=== PATIENT | female | born 1995 | race Caucasian/White ===

== ENCOUNTER 2018-12-13 12:46 | Emergency (ER) | payer OTHER, SELFPAY ==
--- NOTE | 2018-12-13 13:15 | EDPHYS ---
Physician Documentation [facility] Name: Kamille Schofield Age: 23 yrs Sex: Female : 1995 Arrival Date: 12/13/2018 Time: 12:49 Bed 12 Private MD: ED Physician Cesar Velazco HPI: 12/13 13:07 This 23 yrs old Female presents to ER via Ambulatory with complaints of Ear jmm Pain. 13:07 The patient presents with pain. Onset: The symptoms/episode began/occurred gradually, 2 jmm day(s) ago. Modifying factors: The symptoms are alleviated by nothing, the symptoms are aggravated by nothing. Associated signs and symptoms: Pertinent positives: cough. This is a 23 year old female with no chronic medical conditions that presents to the ED with complaints of right ear pain and decreased ability to hear. Patient states having a cough for approximately 2 days. Children have similar symptoms. . Historical: - Allergies: 12:55 No Known Allergies; sv - Ebola Screening: : No symptoms or risks identified at this time. ROS: 13:07 Constitutional: Negative for fever, chills, and weight loss. jmm 13:07 Abdomen/GI: Negative for abdominal pain, nausea, vomiting, diarrhea, and constipation. 13:07 ENT: Positive for rhinorrhea, sinus congestion. 13:07 ENT: Positive for ear pain. 13:07 Respiratory: Positive for cough. 13:07 All other systems are negative. Exam: 13:07 Constitutional: This is a well developed, well nourished patient who is awake, alert, jmm and in no acute distress. Head/Face: atraumatic. Eyes: EOMI, no conjunctival erythema appreciated 13:07 Neck: Trachea midline, Supple Chest/axilla: Normal chest wall appearance and motion. 13:07 Respiratory: Normal respirations, no respiratory distress appreciated Abdomen/GI: Non distended, soft Back: Normal ROM Skin: General appearance color normal MS/ Extremity: Moves all extremities, no obvious deformities appreciated, no edema noted to the lower extremities Neuro: Awake and alert, normal gait Psych: Behavior is normal, Mood is normal, Patient is cooperative and pleasant 13:07 ENT: TM's: bulging, on the right, erythema, that is moderate, bilaterally. 13:07 Cardiovascular: Rate: normal, Rhythm: regular. 13:07 Respiratory: the patient does not display signs of respiratory distress, Respirations: normal, Breath sounds: are clear throughout. Vital Signs: 12:55 BP 128 / 88; Pulse 82; Resp 18; Temp 98.8; Pulse Ox 98% ; Height 5 ft. 7 in. (170.18 sv cm); MDM: 13:07 Patient medically screened. moises 13:14 Data reviewed: vital signs, nurses notes. Counseling: I had a detailed discussion with moises the patient and/or guardian regarding: the historical points, exam findings, and any diagnostic results supporting the discharge/admit diagnosis, the need for outpatient follow up, to return to the emergency department if symptoms worsen or persist or if there are any questions or concerns that arise at home. ED course: Patient is alert and non toxic in appearance in the ED. Patient given strict return precautions. Patient understood and agrees with the plan of care. . Administered Medications: No medications were administered Disposition: 12/14 07:26 Co-signature as Attending Physician, Cesar Velazco MD I agree with the assessment and kdr plan of care. Disposition: 12/13/18 13:15 Discharged to Home. Impression: Acute serous otitis media. - Condition is Stable. - Discharge Instructions: Otitis Media, Adult. - Prescriptions for Amoxicillin 875 mg Oral Tablet - take 1 tablet by ORAL route every 12 hours for 10 days; 20 tablet. - Medication Reconciliation Form, Thank You Letter, Antibiotic Education, Prescription Opioid Use form. - Follow up: Private Physician; When: 2 - 3 days; Reason: Recheck today's complaints, Continuance of care, Re-evaluation by your physician. Signatures: Kalee Ahmadi RN RN Cesar Velazco MD MD kdr Mickail, Joel, PA PA jm Joan Teixeira, STEPHANY RN aa5 Corrections: (The following items were deleted from the chart) 12/13 13:18 13:15 12/13/2018 13:15 Discharged to Home. Impression: Acute serous otitis media. aa5 Condition is Stable. Forms are Medication Reconciliation Form, Thank You Letter, Antibiotic Education, Prescription Opioid Use. Follow up: Private Physician; When: 2 - 3 days; Reason: Recheck today's complaints, Continuance of care, Re-evaluation by your physician. [facility]
--- NOTE | 2018-12-13 13:15 | ER ---
Nurse's Notes [facility] Name: Kamille Schofield Age: 23 yrs Sex: Female : 1995 Arrival Date: 12/13/2018 Time: 12:49 Bed 12 Private MD: Diagnosis: Acute serous otitis media Presentation: 12/13 12:55 Presenting complaint: Patient states: right ear pain x 2 days. Transition of care: sv patient was not received from another setting of care. Onset of symptoms was December 2018. Risk Assessment: Do you want to hurt yourself or someone else? Patient reports no desire to harm self or others. Initial Sepsis Screen: Does the patient meet any 2 criteria? No. Patient's initial sepsis screen is negative. Does the patient have a suspected source of infection? No. Patient's initial sepsis screen is negative. Care prior to arrival: Medication(s) given: Amoxicillin. 12:55 Method Of Arrival: Ambulatory sv 12:55 Acuity: SREE 5 sv Historical: - Allergies: 12:55 No Known Allergies; sv - Ebola Screening: : No symptoms or risks identified at this time. Screenin:00 Abuse screen: Denies threats or abuse. Nutritional screening: No deficits noted. aa5 Tuberculosis screening: No symptoms or risk factors identified. Fall Risk None identified. Assessment: 13:00 General: Appears comfortable, Behavior is calm, cooperative. Pain: Complains of pain in aa5 right ear Pain does not radiate. Pain currently is 8 out of 10 on a pain scale. Is continuous. Neuro: Level of Consciousness is awake, alert, obeys commands, Oriented to person, place, time, situation. Cardiovascular: Patient's skin is warm and dry. Respiratory: Airway is patent Respiratory effort is even, unlabored, Respiratory pattern is regular, symmetrical. GI: No signs and/or symptoms were reported involving the gastrointestinal system. : No signs and/or symptoms were reported regarding the genitourinary system. EENT: Reports pain in right ear. Derm: Skin is pink, warm \T\ dry. Musculoskeletal: Range of motion: intact in all extremities. 13:18 Reassessment: Patient is alert, oriented x 3, equal unlabored respirations, skin aa5 warm/dry/pink. Vital Signs: 12:55 BP 128 / 88; Pulse 82; Resp 18; Temp 98.8; Pulse Ox 98% ; Height 5 ft. 7 in. (170.18 sv cm); ED Course: 12:49 Patient arrived in ED. as 12:55 Triage completed. sv 12:56 Fer[facility] Stoner [facility] 12:56 Arm band placed on. sv 12:57 Cesar Velazco MD is Attending Physician. [facility] 13:00 Patient has correct armband on for positive identification. Call light in reach. aa5 13:00 Patient did not have IV access during this emergency room visit. aa5 13:00 No provider procedures requiring assistance completed. aa5 13:08 Joan Teixeira, RN is Primary Nurse. aa5 Administered Medications: No medications were administered Outcome: 13:15 Discharge ordered by MD. [facility] 13:15 Discharged to home ambulatory. aa5 13:15 Condition: good 13:15 Discharge instructions given to patient, Instructed on discharge instructions, follow up and referral plans. medication usage, Demonstrated understanding of instructions, follow-up care, medications, Prescriptions given X 1. 13:18 Patient left the ED. aa5 Signatures: Kalee Ahmadi, RN RN Fercho Stoner PA PA jmm Martinez, Amelia as Joan Teixeira, RN RN aa5 Corrections: (The following items were deleted from the chart) 12:56 12:55 BP 128 / 8; Pulse 82bpm; Resp 18bpm; Pulse Ox 98%; Temp 98.8F; Height 5 ft. 7 sv in.; sv
[2018-12-13 16:36] VITALS: BP 128/88; TEMP 98.8; O2SAT 98
--- OUTSIDE RECORDS SUMMARY | 2018-12-17 03:49 | XMS REPORT ---
:1995 [facility] Address [address] [place] [address] Dr. Hua [address] [place] [id number] Care Team Providers Name Role Phone Unavailable Unavailable Unavailable Problems This patient has no known problems. Allergies, Adverse Reactions, Alerts This patient has no known allergies or adverse reactions. Medications This patient has no known medications.
--- OUTSIDE RECORDS SUMMARY | 2018-12-17 03:49 | XMS REPORT | Summary of Care ---
:1995 Author Organization [facility] Address [address] [place] [address] Care Team Providers Name Role Phone Doctor Unassigned, [employer] Insurance Hmo Unavailable Kennedy RoweP Primary Care Provider Reason for Visit Reason Comments Other has question about problem list Encounter Details Date Type Department Care Team Description 08/30/2018 Telephone [facility]- Sierra Lenz Other (has question [facility], [facility] about problem list) [address] [facility] [address] [facility] [id number] [place] [address] [phone] Allergies No Known Allergiesdocumented as of this encounter (statuses as of 08/30/2018) Medications Medication Sig Dispensed Refills Start Date End Date Status vitamin Take 1 tablet by 100 tablet 3 05/01/2017 Active w/FA tablet mouth daily. hydrocortisone 25 mg Insert 1 30 Suppository 1 04/26/2018 Active suppositoryIndicatio Suppository into ns: Hemorrhoids, rectum 2 (two) unspecified times daily. hemorrhoid type documented as of this encounter (statuses as of 08/30/2018) Active Problems Patient Care Coordination Note IOL 04/28/17 at 39w3d Problem Noted Date Pelvic pressure in 08/30/2018 GBS (group B Streptococcus carrier), +RV culture, currently 2018 Overview: Assess in Obesity affecting in third trimester 01/16/2018 Multiparity 01/16/2018 Short interval between pregnancies affecting in first trimester, 12/2017 antepartum Family history of fraternal twins 01/16/2018 Influenza vaccination declined 01/16/2018 High risk , antepartum 08/31/2016 Estimated Date of Delivery Comments Yes 09/15/2018 Based on last menstrual period of 12/09/2017 documented as of this encounter (statuses as of 08/30/2018) Resolved Problems Problem Noted Date Resolved Date Routine follow-up 05/22/2017 01/16/2018 anemia 04/30/2017 05/22/2017 Single liveborn 04/30/2017 05/22/2017 (spontaneous vaginal delivery) 04/30/2017 05/22/2017 Threatened labor at term 04/28/2017 05/22/2017 Morbid obesity with body mass index of 40.0-49.9 04/28/2017 01/16/2018 39 weeks gestation of 04/28/2017 05/22/2017 Anemia of mother in , antepartum 04/05/2017 05/22/2017 Primigravida, antepartum 01/24/2017 05/22/2017 Obesity in 08/31/2016 05/22/2017 Pelvic cramping in antepartum period 08/31/2016 03/28/2017 documented as of this encounter (statuses as of 08/30/2018) Immunizations Name Administration Dates Next Due TDAP (ADACEL) VACCINE 07/05/2018 Tdap 02/23/2017 documented as of this encounter Social History Tobacco Use Types Packs/Day Years Used Date Never Smoker Smokeless Tobacco: Never Used Alcohol Use Drinks/Week oz/Week Comments No Estimated Date of Delivery Comments Yes 09/15/2018 Based on last menstrual period of 12/09/2017 Sex Assigned at Date Recorded Not on file Job Start Date Occupation Industry Not on file Not on file Not on file Travel History Travel Start Travel End No recent travel history available. documented as of this encounter Last Filed Vital Signs Not on filedocumented in this encounter Plan of Treatment Date Type Specialty Care Team Description 09/06/2018 Routine Visit OB Satellites Kennedy Rowe, [employer] [address] [place] [address] [phone] Health Maintenance Due Date Last Done Comments HPV VACCINES (1 - Female 2008 3-dose series) INFLUENZA VACCINE 10/07/2018 PAP SMEAR 09/01/2019 08/31/2016 DTaP,Tdap,and Td Vaccines (3 07/05/2028 07/05/2018, - Td) 02/23/2017 PNEUMOCOCCAL 0-64 YEARS Aged Out No longer eligible based COMBINED SERIES on patient's age to complete this topic documented as of this encounter Results Not on filedocumented in this encounter Insurance Payer Benefit Plan / Subscriber ID Effective Dates Phone Address Type Group [facility] xxxxxxxxx 2018-Present Medicaid HEALTH PLAN - HEALTH MANAGED MEDICAID documented as of this encounter Advance Directives Name Relationship Healthcare Agent Relationship Communication Dalia Case Grandparent Primary healthcare agent [phone]
--- OUTSIDE RECORDS SUMMARY | 2018-12-17 03:49 | XMS REPORT | Summary of Care ---
:1995 Author Organization [facility] Address [address] [place] [id number] Care Team Providers Name Role Phone Doctor Unassigned, [place] Insurance Hmo Unavailable Kennedy Rowe Primary Care Provider Reason for Visit Reason Comments Care Encounter Details Date Type Department Care Team Description 08/30/2018 Routine [facility] [place], High-risk in third trimester (Primary Dx); Visit [place] [facility]; [address] [place] [address] Short interval between pregnancies affecting in first trimester, antepartum; [facility] Obesity affecting in third trimester; [id number] [address] Pelvic pressure in [phone] [place] [address] Allergies No Known Allergiesdocumented as of this [...] of this encounter Last Filed Vital Signs Vital Sign Reading Time Taken Comments Blood Pressure 138/87 08/30/2018 1:30 PM CDT Pulse 112 08/30/2018 1:30 PM CDT Temperature 37.4 C (99.4 F) 08/30/2018 1:30 PM CDT Respiratory Rate 16 08/30/2018 1:30 PM CDT Oxygen Saturation - - Inhaled Oxygen Concentration - - Weight 143.1 kg (315 lb 6 oz) 08/30/2018 1:30 PM CDT Height 170.2 cm (5' 7") 08/30/2018 1:30 PM CDT Body Mass Index 49.39 08/30/2018 1:30 PM CDT documented in this encounter Progress Notes Sierra Lenz, CNP - 08/30/2018 1:15 PM CDT Chief complaint: Chief Complaint Patient presents with Care HPI CC: Follow Up Visit Kamille Schofield is a 23 year old, , /White female. Patient's last menstrual period was 12/09/2017. She is 37w5d with an intrauterine . Her estimated date of delivery is 09/15/2018,by Last Menstrual Period. She complains today of: Cramps. She reports midpoint of pelvis cramps which started 1 day(s) ago, occurring since last nightshe rates cramp as 4/10. Associated symptom(s) include none. Symptoms are worse with movements. Symptoms are relieved with rest.. She reports +FM and denies contractions, LOF and bleeding today. Histories OB History Para Term AB Living 2 1 1 1 SAB TAB Ectopic Multiple Live Births 0 1 # Outcome Date GA Lbr Ancelmo/2nd Weight Sex Delivery Anes PTL Lv 2 Current 1 Term 04/29/17 39w4d 7 lb 13.6 oz (3.56 kg) F VAGINAL EPI CHANTE Past Medical History: Diagnosis Date Anemia of mother in , antepartum 04/05/2017 Family History Problem Relation Age of Onset Other - see comments Maternal Grandmother blood clot in leg Arthritis NoFHx Asthma NoFHx defects NoFHx Breast Cancer NoFHx Colon Cancer NoFHx Ovarian Cancer NoFHx Uterine Cancer NoFHx Cancer NoFHx Depression NoFHx Genetic NoFHx Diabetes NoFHx Heart NoFHx High cholesterol NoFHx Hypertension NoFHx Mental retardation NoFHx Neurological NoFHx Osteoporosis NoFHx Psychiatry NoFHx Family Status Relation Name Status MGMo (Not Specified) NoFHx (Not Specified) Past Surgical History: Procedure Laterality Date APPENDECTOMY at age 10 Social History Socioeconomic History Marital status: Single Spouse name: Not on file Number of children: Not on file Years of education: Not on file Highest education level: Not on file Occupational History Not on file Social Needs Financial resource strain: Not on file Food insecurity: Worry: Not on file Inability: Not on file Transportation needs: Medical: Not on file Non-medical: Not on file Tobacco Use Smoking status: Never Smoker Smokeless tobacco: Never Used Substance and Sexual Activity Alcohol use: No Drug use: No Sexual activity: Yes Partners: Male control/protection: None Comment: last sexual intercourse 12/21/2017 Lifestyle Physical activity: Days per week: Not on file Minutes per session: Not on file Stress: Not on file Relationships Social connections: Talks on phone: Not on file Gets together: Not on file Attends shinto service: Not on file Active member of club or organization: Not on file Attends meetings of clubs or organizations: Not on file Relationship status: Not on file Intimate partner violence: Fear of current or ex partner: Not on file Emotionally abused: Not on file Physically abused: Not on file Forced sexual activity: Not on file Other Topics Concern Not on file Social History Narrative Pt denies current or past physical, sexual or emotional abuse. Has a cat in the house, litter box precautions discussed. Social History Substance and Sexual Activity Sexual Activity Yes Partners: Male control/protection: None Comment: last sexual intercourse 12/21/2017 Labs No new labs and Routine Visit on 08/23/2018 Component Date Value C. trachomatis Nucleic A* 08/23/2018 Negative N. gonorrhoeae Nucleic A* 08/23/2018 Negative Group B Streptococcus by* 08/23/2018 Positive* WBC 08/23/2018 9.22 RBC 08/23/2018 4.06 HGB 08/23/2018 10.2* HCT 08/23/2018 33.1* MCV 08/23/2018 81.5 MCH 08/23/2018 25.1* MCHC 08/23/2018 30.8* RDW-SD 08/23/2018 40.6 RDW-CV 08/23/2018 13.8 PLT 08/23/2018 206 MPV 08/23/2018 11.1 NRBC/100 WBC 08/23/2018 0.0 NRBC x10^3 08/23/2018 <0.01 GRAN MAT (NEUT) % 08/23/2018 78.0 IMM GRAN % 08/23/2018 0.20 LYMPH % 08/23/2018 17.2 MONO % 08/23/2018 3.8 EOS % 08/23/2018 0.5 BASO % 08/23/2018 0.3 GRAN MAT x10^3(ANC) 08/23/2018 7.18* IMM GRAN x10^3 08/23/2018 <0.03 LYMPH x10^3 08/23/2018 1.59 MONO x10^3 08/23/2018 0.35 EOS x10^3 08/23/2018 0.05 BASO x10^3 08/23/2018 0.03 Routine Visit on 08/16/2018 Component Date Value POCT U PROT 08/16/2018 trace POCT U GLU 08/16/2018 neg Routine Visit on 08/02/2018 Component Date Value POCT U SP GRAV 08/02/2018 . POCT PH U 08/02/2018 . POCT U LEUK EST 08/02/2018 . POCT U NIT 08/02/2018 . POCT U PROT 08/02/2018 1+ POCT U GLU 08/02/2018 neg POCT U KETONE 08/02/2018 . POCT U UROBILI 08/02/2018 . POCT U BILI 08/02/2018 . POCT U BLD 08/02/2018 . Routine Visit on 07/19/2018 Component Date Value POCT U PROT 07/19/2018 neg POCT U GLU 07/19/2018 neg Routine Visit on 07/05/2018 Component Date Value HIV 1/2 Ag-Ab with Reflex 07/05/2018 Negative HIV Semi-quantitative 07/05/2018 0.08 Syphilis IgG/IgM 07/05/2018 Non-reactive POCT U PROT 07/05/2018 trace POCT U GLU 07/05/2018 neg Routine Visit on 06/18/2018 Component Date Value POCT U SP GRAV 06/18/2018 . POCT PH U 06/18/2018 . POCT U LEUK EST 06/18/2018 . POCT U NIT 06/18/2018 . POCT U PROT 06/18/2018 neg POCT U GLU 06/18/2018 neg POCT U KETONE 06/18/2018 . POCT U UROBILI 06/18/2018 . POCT U BILI 06/18/2018 . POCT U BLD 06/18/2018 . GLUC 1 HR 06/18/2018 103* WBC 06/18/2018 7.79 RBC 06/18/2018 3.96 HGB 06/18/2018 10.3* HCT 06/18/2018 32.8* MCV 06/18/2018 82.8 MCH 06/18/2018 26.0 MCHC 06/18/2018 31.4* RDW-SD 06/18/2018 41.0 RDW-CV 06/18/2018 13.6 PLT 06/18/2018 229 MPV 06/18/2018 11.0 NRBC/100 WBC 06/18/2018 0.0 NRBC x10^3 06/18/2018 <0.01 GRAN MAT (NEUT) % 06/18/2018 74.6 IMM GRAN % 06/18/2018 0.40 LYMPH % 06/18/2018 19.3 MONO % 06/18/2018 4.5 EOS % 06/18/2018 0.8 BASO % 06/18/2018 0.4 GRAN MAT x10^3(ANC) 06/18/2018 5.82 IMM GRAN x10^3 06/18/2018 0.03 LYMPH x10^3 06/18/2018 1.50 MONO x10^3 06/18/2018 0.35 EOS x10^3 06/18/2018 0.06 BASO x10^3 06/18/2018 0.03 Radiology No new radiology. Allergies Kamille has No Known Allergies. Medications Kamille has a current medication list which includes the following prescription(s) : hydrocortisone and vitamin w/fa. Review of Systems Constitutional: Negative. HENT: Negative. Eyes: Negative. Respiratory: Negative. Breasts: Negative. Cardiovascular: Negative. Gastrointestinal: Negative. Genitourinary: Negative. Musculoskeletal: Negative. Skin: Negative. Neurological: Negative. Psychiatric/Behavioral: Negative. Endocrine: Endocrine negative BP 138/87 (BP Location: Right arm, Patient Position: Sitting, BP CUFF SIZE: Adult Medium) | Pulse 112 | Temp 37.4 C (99.4 F) (Oral) | Resp 16 | Ht 5 ' 7" (1.702 m) | Wt 315 lb 6 oz (143.1 kg) | LMP 12/09/2017 | BMI 49.39 kg/m Pregravid BMI: 47.4 Physical Exam Cervix: No lesion. No tenderness and no discharge present. 50% effaced Fingertip dilated PHYSICAL: General Exam: Neurological: Normal Abdomen: Normal gravid Extremities: Normal Pelvic Exam: Uterus: 39 Weeks Assessment/Plan Return to clinic in 1 weeks. Denies zika virus risk, signs and symptoms such as fever,rash,joint pain, conjunctivitis (red eyes),muscle pain, headaches; outside [place] travel to areas affected by zika, and FOB exposure to zika. Educated on use of mosquito repellent. High-risk in third trimester (primary encounter diagnosis) Multiparity Short interval between pregnancies affecting in first trimester, antepartum Comment: routine Plan: POCT URINALYSIS W SPECIFIC GRAVITY Obesity affecting in third trimester Comment: see bmi Plan: limit weight gain and sensible diet. Pelvic pressure in Comment: reports Plan: patient advised on relief methods, maternaity pants, pelvic support belt This visit did not involve counseling and coordination that comprised more than 50% of the visit time. ZITA Vera 08/30/2018 1:46 PM documented in this encounter Plan of Treatment Date Type Specialty Care Team Description 09/06/2018 Routine Visit OB Satellites Kennedy Rowe, [employer] [address] [place] [address] [phone] Health Maintenance Due Date Last Done Comments HPV VACCINES (1 - Female 2008 3-dose series) INFLUENZA VACCINE 10/07/2018 PAP SMEAR 09/01/2019 08/31/2016 DTaP,Tdap,and Td Vaccines (3 07/05/2028 07/05/2018, - Td) 02/23/2017 PNEUMOCOCCAL 0-64 YEARS Aged Out No longer eligible based COMBINED SERIES on patient's age to complete this topic documented as of this encounter Procedures Procedure Name Priority Date/Time Associated Diagnosis Comments POCT URINALYSIS Routine 08/30/2018 1:34 PM High-risk Results for this CDT in third trimester procedure are in the results section. documented in this encounter Results POCT URINALYSIS W SPECIFIC GRAVITY (08/30/2018 1:34 PM CDT) POCT U SP GRAV . 1.005 - 1.025 mg/dl POCT PH U . 5 - 8 mg/dl POCT U LEUK EST . Negative - Negative POCT U NIT . Negative - Negative POCT U PROT Trace Negative - Negative POCT U GLU Neg Negative - Negative POCT U KETONE . Negative - Negative POCT U UROBILI . 0.2 - 1 mg/dl POCT U BILI . Negative - Negative POCT U BLD . Negative - Negative POCT U COLOR POCT U APPEAR Specimen Urine - URINE, CLEAN CATCH documented in this encounter Visit Diagnoses Diagnosis High-risk in third trimester - Primary Multiparity Short interval between pregnancies affecting in first trimester, antepartum Obesity affecting in third trimester Pelvic pressure in Other specified complication, antepartum documented in this encounter Insurance Payer Benefit Plan / Subscriber ID Effective Dates Phone Address Type Group [facility] xxxxxxxxx 2018-Present Medicaid HEALTH PLAN - HEALTH MANAGED MEDICAID documented as of this encounter Advance Directives Name Relationship Healthcare Agent Relationship Communication Dalia Case Grandparent Primary healthcare agent [email or web address]
--- OUTSIDE RECORDS SUMMARY | 2018-12-17 03:49 | XMS REPORT | Summary of Care ---
:1995 Author Organization [facility] - [facility] Address [address] [place] [id number] Care Team Providers Name Role Phone Doctor Unassigned, Perla Insurance Hmo Unavailable Kennedy Rowe Primary Care Provider Reason for Referral (Routine) Status Reason Specialty Diagnoses / Procedures Referred By Referred To Contact Contact New Request Diagnoses High risk , antepartum 39 weeks gestation of (spontaneous vaginal delivery) Obesity affecting in third trimester GBS (group B Streptococcus carrier), +RV culture, currently Single live Sanaz Harley FNP Status post tubal ligation fever Multiparity Short interval between pregnancies affecting in first trimester, antepartum Influenza vaccination declined Pelvic pressure in [address] Procedures DISCHARGE FOLLOW-UP: [place] [address] Reason for Visit Auth/Cert Status Reason Specialty Diagnoses / Referred By Contact Referred To Contact Procedures Obstetrics Diagnoses INDUCTION J8c [address] [place] [id number] Encounter Details Date Type Department Care Team Description 09/10/2018 - Hospital Encounter Mother Baby Unit KIARA Walsh (spontaneous 09/12/2018 (J8C) MD Arabella vaginal delivery) [address] [place] [address] [address] [place] [id number] [place] [address] [id number] Allergies No Known Allergiesdocumented as of this encounter (statuses as of 09/12/2018) Medications Medication Sig Dispensed Refills Start End Status Date Date hydrocortisone 25 Insert 1 30 Suppository 1 Active mg Suppository 9 suppositoryIndicat into rectum 2 ions: Hemorrhoids, (two) times unspecified daily. hemorrhoid type docusate calcium Take 1 capsule 60 capsule 1 Active 240 mg by mouth once 9 capsuleIndications daily as needed : 39 weeks for gestation of Constipation. , (spontaneous vaginal delivery), Multiparity ibuprofen 600 mg Take 1 tablet 60 tablet 1 Active tabletIndications: by mouth every 9 39 weeks gestation 6 (six) hours of , as needed for (spontaneous Pain (scale vaginal delivery), 1-3) or Pain Multiparity (scale 4-6) (Pain). Take with food or milk. Iron Fum & Take 1 capsule 30 capsule 2 Active P-FA-Vit B & C by mouth daily. 9 No.9 (INTEGRA PLUS) 125 mg iron- 1 mg CapIndications: 39 weeks gestation of , (spontaneous vaginal delivery) vitamin Take 1 tablet 100 tablet 3 Discontinued w/FA tablet by mouth daily. 8 019 documented as of this encounter (statuses as of 09/12/2018) Active Problems Patient Care Coordination Note IOL 04/28/17 at 39w3d Problem Noted Date Single live 09/11/2018 Status post tubal ligation 09/11/2018 fever 09/11/2018 Pelvic pressure in 08/30/2018 GBS (group B Streptococcus carrier), +RV culture, currently 2018 Overview: Assess in Obesity affecting in third trimester 01/16/2018 Multiparity 01/16/2018 Short interval between pregnancies affecting in first trimester, 12/2017 antepartum Influenza vaccination declined 01/16/2018 (spontaneous vaginal delivery) 04/30/2017 39 weeks gestation of 04/28/2017 High risk , antepartum 08/31/2016 documented as of this encounter (statuses as of 09/12/2018) Resolved Problems Problem Noted Date Resolved Date Family history of fraternal twins 01/16/2018 09/10/2018 Routine follow-up 05/22/2017 01/16/2018 anemia 04/30/2017 05/22/2017 Single liveborn 04/30/2017 05/22/2017 Threatened labor at term 04/28/2017 05/22/2017 Morbid obesity with body mass index of 40.0-49.9 04/28/2017 01/16/2018 Anemia of mother in , antepartum 04/05/2017 05/22/2017 Primigravida, antepartum 01/24/2017 05/22/2017 Obesity in 08/31/2016 05/22/2017 Pelvic cramping in antepartum period 08/31/2016 03/28/2017 documented as of this encounter (statuses as of 09/12/2018) Immunizations Name Administration Dates Next Due TDAP (ADACEL) VACCINE 07/05/2018 Tdap 02/23/2017 documented as of this encounter Social History Tobacco Use Types Packs/Day Years Used Date Never Smoker Smokeless Tobacco: Never Used Alcohol Use Drinks/Week oz/Week Comments No Sex Assigned at Date Recorded Not on file Job Start Date Occupation Industry Not on file Not on file Not on file Travel History Travel Start Travel End No recent travel history available. documented as of this encounter Last Filed Vital Signs Vital Sign Reading Time Taken Comments Blood Pressure 108/65 09/12/2018 8:00 AM CDT Pulse 84 09/12/2018 8:00 AM CDT Temperature 36.5 C (97.7 F) 09/12/2018 8:00 AM CDT Respiratory Rate 18 09/12/2018 8:00 AM CDT Oxygen Saturation 99% 09/12/2018 8:00 AM CDT Inhaled Oxygen Concentration - - Weight 144.4 kg (318 lb 4.8 oz) 09/10/2018 6:54 AM CDT Height 170.2 cm (5' 7") 09/10/2018 6:54 AM CDT Body Mass Index 49.85 09/10/2018 6:54 AM CDT documented in this encounter Discharge Instructions InstructionsDomi Potter RN - 09/12/2018 Patient Discharge Instructions Instrucciones para el paciente al angella de pb Rubella: Rubella screen IgG (no units) Date Value 01/16/2018 Positive Hgb/HCT: HGB (g/dL) Date Value 09/11/2018 10.0 (L) , HCT (%) Date Value 09/11/2018 30.8 (L) ABO Type: ABO & RH (no units) Date Value 09/10/2018 O POSITIVE Patient Discharge Instructions Take Home Medications These are medications ordered for you by your healthcare provider. Do not take any other medicationsor supplements unless advised by your healthcare provider. Medicamentos tomados en casa: Estos son medicamentos ordenados por cedillo proveedor de servicios mdicos. No tome ningn otro medicamento o suplemento a menos que sea aconsejado por cedillo proveedor. Current Discharge Medication List START taking these medications Details docusate calcium (SURFAK) 240 mg Take 240 mg by mouth once daily as needed for Constipation. Qty: 60 capsule, Refills: 1 Start date: 09/12/2018 Associated Diagnoses: 39 weeks gestation of ; (spontaneous vaginal delivery); Multiparity ibuprofen (IBU) 600 mg Take 600 mg by mouth every 6 (six) hours as needed for Pain (scale 1-3) or Pain (scale 4-6) (Pain). Take with food or milk. Qty: 60 tablet, Refills: 1 Start date: 09/12/2018 Associated Diagnoses: 39 weeks gestation of ; (spontaneous vaginal delivery); Multiparity Iron Fum & P-FA-Vit B & C No.9 (INTEGRA PLUS) 1 capsule Take 1 capsule by mouth daily. Qty: 30 capsule, Refills: 2 Start date: 09/12/2018 Associated Diagnoses: 39 weeks gestation of ; (spontaneous vaginal delivery) CONTINUE these medications which have NOT CHANGED Details hydrocortisone (ANUSOL-HC) 25 mg Insert 25 mg into rectum 2 (two) times daily. Qty: 30 Suppository, Refills: 1 Associated Diagnoses: Hemorrhoids, unspecified hemorrhoid type STOP taking these medications vitamin w/FA (PRENATABS RX) 1 tablet Comments: Reason for Stopping: Follow-up Appointments/Sahra citas: The following appointments have been made for you: Las siguientes citas se hicieron para usted: Provider Place Date Time Follow instructions as indicated below: Siga las instrucciones que se le indican a continuacin: Discharge Orders Regular Diet; Texture: Regular. Texture Regular. Diabetic: No Discharge Condition - GOOD Discharge Condition: GOOD Discharge Activity: - Ambulate with Pelvic Rest x 6 weeks DISCHARGE FOLLOW-UP: [facility] Order Comments: If [facility] clinic, Nursing Staff to call clinic for follow-up appointment. Follow-up with: JAMARCUS Ramachandran When: 3 Weeks Patient Discharge Instructions - Vaginal Delivery Order Comments: Return to ER if Temp > 100.4 F, headache unresolved with pain medications, visual disturbances including double or blurry vision, seeing spots, or upper abdominal pain. Pelvic rest 4 to 6 weeks, and no heavy lifting. Weight: In general, sudden weight gains or losses should be reported to your provider. Cardiac patients should weigh daily and notify their provider for a weight gain of 3 pounds per day or 5 pounds per week. Peso: En general, la perdida aumento repentino de peso deber ser reportado a cedillo proveedor. Lospacientes cardiacos, debern pesarse a diario y notificar a cedillo proveedor si tienen un aumento de 3 libras por da o 5 libras por semana. Tobacco Avoidance: Follow recommendations below Para evitar el Tabaco: Siga las recomendaciones a continuacin. To schedule other appointments, call the [facility] at or1- . You may also make appointments online by going to [email or web address] and follow the Request Appointment quicklink. Para programar otras citas, llame al centro de acceso de mindi de [facility] al o al . Sulema navas puede hacer citas por internet, vaya a [email or web address].[facility] hospitalLookingglass [employer] y sonia la conexin con solicitud citas ( Request Appointment) For questions regarding follow-up instructions call the [facility] at or Para preguntas relacionadas con las instrucciones del seguimiento llame al For worsening symptoms/changing condition/problems or questions: Si los sntomas empeoran/cambios de condicin/problemas o preguntas, llame: Non-emergency/urgent: Call the [facility] Health Access Center at or 1- or No emergencia/urgencia: Llame al Centro [facility] Acceso de Mind[facility] de [facility] Emergency: Go to the closest emergency room or call [phone] Emergencia: Vaya a la keerthi de emergencia ms love o llame al 911 Our Goal is to Always Provide You with Very Good Care! We will be mailing you a survey, Please complete and return at your convenience. Thank You Nuestra Raceland es Ofrecerle a Usted Siempre, sobeida muy buena atencin. Nosotros le enviaremos sobeida encuesta, por favor llnela y regrsela segn pueda. Bashir Multidisciplinary Discharge Instructions (may include diet, dressing changes, activity limits, written materials given to patient: DIET: Eat a well balanced diet; drink 6-8 glasses of fluids daily; eat fruits and green, leafy vegetables. DAILY ACTIVITIES: 1. As much as you feel able to do. Rest when you are tired. 2. Limitations: Specify; No heavy lifting other than your baby for 4 weeks if you had surgery. TREATMENT AT HOME 1. Use a well-fitting bra to prevent breast engorgement 2. Resume intercourse as instructed by your physician. 3. Do not use douches or tampons for four weeks. 4. To help prevent urinary tract infection; after each urination and bowelmovement, wipe and dry from front to back and change peripad. 5. Follow discharge instructions regarding baby care. 6. Follow family planning instructions. IMMEDIATE TREATMENT Call Clinic or Your Physician 1. Increase in pain and tenderness of uterus. 2. Increased vaginal bleeding (bright red blood which soaks 2 pads in 1hour or pass large clots). 3. Foul smelling vaginal discharge. 4. Burning in the tube that empties the urine from the bladder. 5. Painful breast engorgement or cracked nipples. 6. Pain, discharges, or gaping incision. 7. Temperature greater than 38.0C or 100.4F 8. Pain and tenderness of calf or thigh muscles. 9. No bowel movements in 4 days. Instrucciones multidisciplinarias para angella de pb (pueden incluir, dieta, cambio de gasas, limitacin de actividades, material escrito para entregar al paciente): DIETA: Mantenga sobeida dieta nagi balanceada; tome de 6 a 8 vasos de lquidos al da; coma frutas, hortalizas y vegetales. ACTIVIDADES DIARIAS: 1. Mantngalas mientras pueda. Descanse si se siente cansada, 2. Limitaciones: No levante nada ms pesado que cedillo hijo por cuatro semanas si tuvo sobeida operacin. CEDILLO CUIDADO EN CASA: 1. Use un sostn que le ajuste nagi para evitar que se le llenen demasiados los pechos. 2. Resuma sahra relaciones sexuales segn le indique cedillo doctor. 3. No use duchas ni tampones por 4 semanas. 4. Para ayudar a prevenir infecciones urinarias, despus de orinar y defecar, lmpiese de adelante hacia atrs y cmbiese la toalla sanitaria. 5. Siga las instuciones sobre el cuidado del beb. 6. Siga las instrucciones sobre planificacin familiar. TRATAMIENTO INMEDIATOLlame a la clnica o a cedillo doctor si: 1. Aumenta el dolor o sensibilidad en la matriz. 2. Aumenta el sangramiento vaginal (mingo artemio brillante que pueda llenar 2 toallas sanitarias en sobeida hora o si tiene cogulos grandes). 3. Tiene desecho vaginal con mal olor. 4. Tiene ardor cuando orina. 5. Siente dolor en los pechos porque estn muy llenos o grietas en los pezones. 6. Tiene dolor, drenaje o que se le habr la incisin. 7. Tiene temperatura mayor de 38.0 grados centgrados o ms de 100.4 grados Farenheit. 8. Tiene dolor sensibilidad en los msculos de las pantorrillas o de los muslos. 9. Tiene estreimiento por 4 henderson. Tobacco Avoidance Exposure to tobacco either from smoking or from second hand (environmental) smoke or smokeless tobacco (snuff) is damaging to your health. This information is to encourage everyone to avoid tobacco exposure. It is recommended that you: ? If you smoke or use smokeless tobacco, we encourage you to quit. ? If you have already quit smoking, continue your good work! ? If you do not smoke or use smokeless tobacco, do not start. ? Avoid secondhand smoke. Additional Resources You may want to contact these organizations for further information on smoking and how to quit. [place] [employer], http://www.lungusa.org/stop-smoking/ [place] [employer], http://www.cancer.org/Healthy/StayAwayfromTobacco/index [place] [employer], http://www.heart.org/HEARTORG/GettingHealthy/ QuitSmoking/Quit-Smoking_[facility]_001085_SubHomePage.jsp Evitar El Tabaco La exposicin al tabaco ya sea por fumar o por el humo de segunda mano (humo ambiental) y el tabacosin humo es perjudicial para cedillo mindi. Esta informacin es para animar a todos para que eviten la exposicin al tabaco. Se recomienda: Si usted fuma o usa tabaco sin humo le animamos a dejarlo. Si osei dejado de fumar, continu con cedillo buen trabajo! Si usted no fuma o usa tabaco sin humo no empiece a hacerlo. Evitar el humo de segunda mano. Recursos Adicionales: Usted puede comunicarse con estas organizaciones para tener ms informacin sobre fumar y shena dejar de hacerlo. [place] [employer] (Asociacin Americana del Pulmn), http:// www.lungusa.org/stop-smoking/ [place] Cancer Society (Sociedad Americana del Cncer), http://www.cancer.org/ Healthy/StayAwayfromTobacco/index [place] Heart [employer] (Asociacin Americana del Corazn), http:// www.heart.org/HEARTORG/GettingHealthy/QuitSmoking/Quit-Smoking_[facility]_001085_ SubHomePage.jsp documented in this encounter Progress Notes Sanaz Harley FNP - 09/11/2018 8:24 AM CDT PROGRESS NOTE Date of Service: 09/11/2018 SUBJECTIVE: Patient is a 23 year old female, S/P and BTL, post op and post day 0. She denies problems or questions, says she will breast/bottle feed her baby and she is S/P BilateralTubal Ligation for contraception. Patient denies sob, vertigo, headache, blurred vision, epigastric pain or palpitations. Patient reports voiding without difficulty with good urine output. Patient reports ambulating unassisted without difficulty. Tolerating diet, passing flatus. No evidence of depression. OBJECTIVE: Vitals: 09/11/18 0215 09/11/18 0230 09/11/18 0245 09/11/18 0315 BP: 95/57 101/56 99/59 112/69 BP Location: Patient Position: Pulse: 102 102 100 100 Resp: 13 15 14 16 Temp: 36.7 C (98 F) 36.9 C (98.4 F) TempSrc: Axillary Oral SpO2: 98% 98% 100% 98% Weight: Height: Rubella: immune Varicella: immune Type and Screen: O and RH postive No results found for: TSABINT No results found for: CGBS HCT (%) Date Value 09/11/2018 30.8 (L) HGB (g/dL) Date Value 09/11/2018 10.0 (L) Physical exam: General: No apparent distress Happy with new baby. Affect appropriate Heart: regular rate and rhythm. No murmur/ rubs/gallops Lungs: good inspiratory effort to inspections, lungs clear to auscultation bilaterally. No wheeze/stridor/ crackles bilaterally. Breast: soft Abdomen: soft non-tender. BTL Incision site with surgical dressing-clean dry & amp; intact Fundus: firm at umbilicus Perineum: intact, no edema, hematoma or abcess Lochia: scant rubra, no clots Extremities: no clubbing, cyanosis, or edema bilaterally. No calf tenderness ASSESSMENT: Normal /post op course Principal Problem: (spontaneous vaginal delivery) (04/30/2017) POA: No Assessment: Delivered Plan: Routine course Active Problems: High risk , antepartum (08/31/2016) POA: Yes 39 weeks gestation of (04/28/2017) POA: Yes Single live (09/11/2018) POA: No Assessment: Infant 4130g with 8/9 Apgars Plan: in care of pediatricians Status post tubal ligation (09/11/2018) POA: No Assessment: incision intact with dressing: clean, dry,and intact. Plan:discussed S&S of infection , advised to remove the dressing during shower and to keep the incision clean and wash with soap and water, Analgesics for pain/ inflammation. fever (09/11/2018) POA: No Assessment: 1 episode of fever immediate PP of 100.4 F at 2310 on 09/10/2018 . Asymptomatic and afebrile since then Plan: encouraged ambulation , increase PO hydration , analgesics PRN. D/C home tomorrow Obesity affecting in third trimester (01/16/2018) POA: Yes Assessment: see BMI Plan: advised to avoid excessive exertion during immediate 6 weeks PP and encouraged healthy dietarymodification. GBS (group B Streptococcus carrier), +RV culture, currently (2018) POA: Yes Assessment: GBS carrier Plan: Treated adequately with antibiotics during labor. PLAN: Evaluate for discharge home tomorrow. Routine instructions including periumbilical incision care reviewed w/ pt. Precautions re: bleed/ injury, depression, infection & DVT's reviewed. Condition: Good ORACIO eLe Pattie Colindres MD - 09/10/2018 11:24 PM CDTS/p , still desires BTL. Pattie Youssef MD 09/10/2018 11:24 PM Reid Byrne MD - 09/10/2018 7:16 PM CDTIntrapartum Progress Note 09/10/2018 7:16 PM Subjective: Patient complains of pain with contractions Objective: Vitals last 24 hours: Temp: [36.6 C (97.9 F)-38 C (100.4 F)] 38 C (100.4 F) Pulse: [74-109] 96 Resp: [18-20] 18 BP: (105-129)/(61-84) 119/70 Intake/Output : I/O this shift: In: 1905 [I.V.:1905] Out: - No intake/output data recorded. Assessment Active movement: Yes Mode: FSE Baseline FHR (bpm): 150 Variability: Moderate Pattern: Accelerations Decel Frequency: None FHR Category: I Uterine Activity: Mode: IUPC Contractions (number / 10 minute): 4 Contraction duration (seconds): 50-60 Resting tone: Soft Membrane Status Membrane status: Artificial Rupture date: 09/10/18 Rupture time: 1541 Amniotic fluid color: Clear Cervical Exam % / -2 Assessment/Plan: Kamille Schofield is a 23 year old at 39w2d OB Assessment: IOL, GBS+, MPDPS OB Plan: s/p FB, Pit@1030, PCN Additional Comments/Detail: FSE replaced, continue labor management Ripening Agent: Oxytocin Intrapartum Plan: Continue active labor management Reid Meza MD Bethany Tracy MD - 09/10/2018 7:38 AM CDT BTL COUNSELING NOTE Kamille Schofield is a @ 39w2d presenting for sIOL "I counseled the patient regarding incentives, risks, benefits and alternatives of Bilateral Tubal Ligation including: risk of infection, bleeding, need for transfusion of blood/blood products, injury to ureter, bladder, bowel with possible further surgery, stint, catheterization or colostomy to repair. The permanence of this procedure and risk of regret in 1 in 3 women were discussed. tubal ligation failure rate is 0.75% and higher in women younger than 30 years old. There is an increased risk for ectopic and the need to seek medical attention should failure of tubal ligation occur. Alternatives discussed include: Oral Contraceptive Agents, Intrauterine Device, Depo Provera, Ring, Patch, Condoms/foam, interval bilateral tubal ligation, or vasectomy of partner. Allquestions answered, and patient expressed her desire to proceed with bilateral tubal ligation surgery." HGB (g/dL) Date Value 08/23/2018 10.2 (L) HCT (%) Date Value 08/23/2018 33.1 (L) PLT (10*3/L) Date Value 08/23/2018 206 PMHx: none Previous abdominal surgery: lap appendectomy Past Surgical History: Procedure Laterality Date APPENDECTOMY at age 10 No Known Allergies Weight: 318 Consent signed on: 07/05/18 Bethany Falcon MD PGY-2 documented in this encounter Plan of Treatment Date Type Specialty Care Team Description 10/01/2018 Routine Visit [facility]ell[facility] [address] [place] [address] [phone] Name Type Priority Associated Diagnoses Order Schedule VENOUS CORD GAS LAB YARELI ONCE for 1 Occurrences starting 09/10/2018 until 09/10/2018 ARTERIAL CORD GAS LAB YARELI ONCE for 1 Occurrences starting 09/10/2018 until 09/10/2018 RHO (D) Immune Globulin LAB Routine ONCE for 1 Occurrences starting 09/11/2018 until 09/11/2018 Health Maintenance Due Date Last Done Comments HPV VACCINES (1 - Female 2008 3-dose series) INFLUENZA VACCINE 10/07/2018 PAP SMEAR 09/01/2019 08/31/2016 DTaP,Tdap,and Td Vaccines (3 07/05/2028 07/05/2018, - Td) 02/23/2017 PNEUMOCOCCAL 0-64 YEARS Aged Out No longer eligible based COMBINED SERIES on patient's age to complete this topic documented as of this encounter Procedures Procedure Name Priority Date/Time Associated Comments Diagnosis CBC WITH DIFFERENTIAL Routine 09/11/2018 3:58 Results for this AM CDT procedure are in the results section. CBC WITH DIFF Routine 09/11/2018 3:58 Results for this AM CDT procedure are in the results section. SURGICAL PATHOLOGY STAT 09/11/2018 1:18 Results for this EXAM AM CDT procedure are in the results section. TUBAL LIGATION 09/11/2018 12:25 23yo s/p AM CDT and BTL GALV ONLY - SYPHILIS YARELI 09/10/2018 9:24 Results for this IGG/IGM AM CDT procedure are in the results section. HEPATITIS B SURFACE YARELI 09/10/2018 9:24 Results for this ANTIGEN AM CDT procedure are in the results section. TYPE AND SCREEN YARELI 09/10/2018 8:33 Results for this AM CDT procedure are in the results section. documented in this encounter Results CBC WITH DIFFERENTIAL (09/11/2018 3:58 AM CDT) WBC 16.33 (H) 4.30 - 11.10 [facility] 10*3/L SERVICES RBC 3.89 (L) 3.93 - 5.25 [facility] 10*6/L SERVICES HGB 10.0 (L) 11.6 - 15.0 [facility] g/dL SERVICES HCT 30.8 (L) 35.7 - 45.2 % [facility] MCV 79.2 (L) 80.6 - 95.5 fL [facility] MCH 25.7 (L) 25.9 - 32.8 pg [facility] MCHC 32.5 31.6 - 35.1 [facility] g/dL SERVICES RDW-SD 41.1 39.0 - 49.9 fL [facility] RDW-CV 14.4 12.0 - 15.5 % [facility] PLT 214 166 - 358 [facility] 10*3/L SERVICES MPV 10.6 9.5 - 12.9 fL [facility] NRBC/100 WBC 0.0 0.0 - 10.0 /100 [facility] WBCs SERVICES NRBC x10^3 <0.01 10*3/L [facility] GRAN MAT (NEUT) % 86.5 % [facility] IMM GRAN % 0.90 % [facility] LYMPH % 8.2 % [facility] MONO % 4.2 % [facility] EOS % 0.0 % [facility] BASO % 0.2 % [facility] GRAN MAT x10^3(ANC) 14.13 (H) 1.88 - 7.09 [facility] 10*3/uL SERVICES IMM GRAN x10^3 0.14 (H) 0.00 - 0.06 [facility] 10*3/uL SERVICES LYMPH x10^3 1.34 1.32 - 3.29 [facility] 10*3/uL SERVICES MONO x10^3 0.69 0.33 - 0.92 [facility] 10*3/uL SERVICES EOS x10^3 <0.03 (L) 0.03 - 0.39 [facility] 10*3/uL SERVICES BASO x10^3 0.03 0.01 - 0.07 [facility] 10*3/uL SERVICES Specimen Blood - ARM, RIGHT Performing Organization Address City/State/Zipcode Phone Number [facility] CLIA: [id number], [address] [place] [address] [facility] SURGICAL PATHOLOGY EXAM (09/11/2018 1:18 AM CDT) Case Report Surgical Pathology Case: [id number] [facility] Authorizing Provider:Flor Rossi MD Collected: 09/11/2018 0121 SERVICES Ordering Location: Labor and Delivery (A3)Received: 09/11/2018 0836 Pathologist: Sagrario Garrido MD Specimens: A) - FALLOPIAN TUBE, RIGHT B) - FALLOPIAN TUBE, LEFT Final Diagnosis [facility] Electronically A. FALLOPIAN TUBE, RIGHT, SEGMENTAL RESECTION: SERVICES signed by Hema , - FULL CROSS SECTION OF FALLOPIAN TUBE IDENTIFIED Sagrario Constantino MD on 09/12/2018 at 11:20 B. FALLOPIAN TUBE, LEFT, SEGMENTAL RESECTION: AM - FULL CROSS SECTION OF FALLOPIAN TUBE IDENTIFIED I have personally reviewed all specimens/slides and agree with all statements made by residents, fellows or pathologist assistants whose name(s) may appear on this report. Clinical 23yo s/p ; [facility] Information [facility] SERVICES Gross Description Specimen A is received in formalin labeled with the patient' s name, number, "fallopian tube, right" and consists of a single jolley-pink segment of fallopian tube (1.8 cm length and 0.7 cm in diameter) [facility] which is serially sectioned to reveal jolley-pink, grossly unremarkable cut surfaces. [employer] sections are submitted in A1. SERVICES Specimen B is received in formalin labeled with the patient's name, number , "fallopian tube, left" and consists of a single jolley-pink segment of fallopian tube (2.7 cm in length and 0.7 cm in diameter ) which is serially sectioned to reveal jolley-pink, grossly unremarkable cut surfaces. [employer] sections are submitted in B1. SIM Telles (ASCP)cm Embedded Images [facility] Specimen Tissue - FALLOPIAN TUBE, LEFT Tissue specimen (specimen) - FALLOPIAN TUBE, LEFT Performing Organization Address City/State/Zipcode Phone Number [facility] CLIA: [id number], [address] [place] [address] [facility] ONLY - SYPHILIS IGG/IGM (09/10/2018 9:24 AM CDT) Syphilis IgG/IgM Non-reactive Non-reactive [facility] Specimen Blood - VENOUS Narrative Performed At Non-reactive - No serologic evidence of T. pallidum [facility] infection. Cannot exclude incubating or early syphilis. Submit a second specimen in 2-4 weeks if syphilis is clinically suspected. Equivocal - Further testing to follow. Reactive - Further testing to follow. Performing Organization Address City/State/Zipcode Phone Number [facility] CLIA: [id number], [address] [place] [id number] [facility] Hepatitis B Surface Antigen (09/10/2018 9:24 AM CDT) HBsAg HEPATITIS B Negative [facility] SURFACE ANTIGEN SERVICES NEGATIVE HBsAg 0.06 [facility] Semi-Quantitative SERVICES Specimen Blood - VENOUS Performing Organization Address City/State/Zipcode Phone Number [facility] CLIA: [id number], [address] [place] [address] [facility] Type and Screen - ONCE YARELI (09/10/2018 8:33 AM CDT) ABO & RH O POSITIVE LAB Comment: Performed at [facility] Services - [facility] Blood [place] [address] Toll Free: [phone] CLIA No. [id number] IAT Negative LAB Comment: Performed at [facility] Laboratory Services - [facility] Blood [place] [address] Toll Free: [phone] CLIA No. [id number] Specimen Blood - VENOUS Performing Organization Address City/State/Zipcode Phone Number D LAB documented in this encounter Visit Diagnoses Diagnosis (spontaneous vaginal delivery) - Primary Normal delivery High risk , antepartum 39 weeks gestation of state, incidental Obesity affecting in third trimester GBS (group B Streptococcus carrier), +RV culture, currently Supervision of other high-risk Single live Outcome of delivery, single liveborn Status post tubal ligation Tubal ligation status fever Puerperal pyrexia of unknown origin, unspecified as to episode of care Multiparity Short interval between pregnancies affecting in first trimester, antepartum Influenza vaccination declined Pelvic pressure in Other specified complication, antepartum documented in this encounter Administered Medications Medication Order MAR Action Action Date Dose Rate Site docusate calcium (SURFAK) capsule Given 09/12/2018 8:10 AM CDT 240 mg 240 mg 240 mg, Oral, QDAILYPRN, Starting Mon09/11/18 at 0318, Until Discontinued, Routine, Constipation Given 09/11/2018 8:11 AM CDT 240 mg HYDROcodone-acetaminophen (NORCO 5) 5-325 Given 09/11/2018 5:50 PM CDT 1 tablet mg tablet 1 tablet 1 tablet, Oral, Q6HPRN, Starting Mon09/11/18 at 0213, Until Discontinued, Routine, Pain (scale 4-6) Given 09/11/2018 12:42 PM CDT 1 tablet Given 09/11/2018 4:36 AM CDT 1 tablet ibuprofen (IBU) tablet 600 mg Given 09/12/2018 6:39 AM CDT 600 mg 600 mg, Oral, Q6HPRN, Starting Mon09/10/18 at 2340, Until Discontinued, Routine, Pain (scale 4-6) Given 09/11/2018 11:12 PM CDT 600 mg Given 09/11/2018 9:39 AM CDT 600 mg magnesium hydroxide (MILK OF MAGNESIA) 400 Given 09/11/2018 3:30 PM CDT 30 mL mg/5 mL suspension 30 mL 30 mL, Oral, QDAILYPRN, Starting Mon09/11/18 at 0318, Until Discontinued, Routine, Constipation nalbuphine (NUBAIN) injection 5 mg 5 mg, Intravenous, PRN, 1 dose, Starting Mon09/11/18 at 0212, Until Discontinued , Routine, Itching, PACU naloxone (NARCAN) injection 0.4 mg 0.4 mg, Slow IV Push, PRN - SEE INSTRUCTIONS, Starting Mon09/11/18 at 0212, Until Sherie 09/13/18 at 0211, Routine, Analgesia Recovery, PACU vitamin w/FA (PRENATABS RX) Given 09/12/2018 8:10 AM CDT 1 tablet tablet 1 tablet 1 tablet, Oral, DAILY, First dose on Mon09/11/18 at 0900, Until Discontinued, Routine Given 09/11/2018 8:11 AM CDT 1 tablet simethicone (GAS RELIEF) chewable tablet 160 Given 09/11/2018 12:43 PM CDT 160 mg mg 160 mg, Oral, PC+HSPRN, Starting Mon09/11/18 at 0318, Until Discontinued, Routine, Gas Medication Order MAR Action Action Date Dose Rate Site acetaminophen (TYLENOL) tablet Given 09/10/2018 8:50 AM CDT 650 mg 650 mg 650 mg, Oral, ONCE, 1 dose, Mon09/10/18 at 0830, Routine D5W-LR IV infusion 1,000 mL New Bag 09/10/2018 6:12 PM CDT 1,000 mL 125 mL/hr at 125 mL/hr, IV Infusion, CONTINUOUS, Starting Mon09/10/18 at 0815, Until Mon09/11/18 at 0318, Routine New Bag 09/10/2018 9:25 AM CDT 1,000 mL 125 mL/hr lactated ringers IV infusion 500 New Bag 09/10/2018 8:53 PM CDT 500 mL 999 mL/hr mL at 999 mL/hr, 500 mL, IV Infusion, ONCE, 1 dose, Mon09/10/18 at 2145, Routine LR 1000 mL + oxytocin 20 Rate Change 09/10/2018 10:00 PM 12 nadeem-units/min 36 mL/hr units IV Solution CDT 2 nadeem-units/min (6 mL/hr), at 6 mL/hr, IV Infusion, TITRATE, Starting Mon09/10/18 at 0813, Until Mon09/11/18 at 0318, YARELI, Oxytocin induction. Rate Change 09/10/2018 8:00 PM CDT 10 nadeem-units/min 30 mL/hr Rate Change 09/10/2018 7:30 PM CDT 8 nadeem-units/min 24 mL/hr penicillin g pot in dextrose Given 09/10/2018 10:07 PM CDT 3 Million Units 50 mL/hr 3 million unit/50 mL RTU iv piggyback 3 Million Units 3 Million Units, IV Piggyback, Q4H ABX, First dose on Mon09/10/18 at 1215, Until Discontinued, 50 mL, Reason for Anti-Infective: Documented Infection, Documented Infection Site: Pelvic, Duration of Therapy: 7 days Given 09/10/2018 6:08 PM CDT 3 Million Units 50 mL/hr penicillin g potassium 5 Million Given 09/10/2018 2:06 PM CDT 5 Million Units Units in NaCl 0.9% (NS) 100 mL MINI-BAG 5 Million Units, IV Piggyback, ONCE, 1 dose, Mon09/10/18 at 0815, 100 mL, Reason for Anti-Infective: Documented Infection, Documented Infection Site: Pelvic, Duration of Therapy: 7 days sodium citrate-citric acid (BICITRA) 500-334 Given 09/11/2018 12:25 AM CDT 30 mL mg/5 mL solution 30 mL 30 mL, Oral, PRE-PROCEDURE ONCE, 1 dose, Starting Mon09/10/18 at 0813, Until Mon09/11/18 at 0025, Routine, Surgery/Procedure sodium citrate-citric acid (BICITRA) 500-334 Given 09/10/2018 8:54 PM CDT 30 mL mg/5 mL solution 30 mL 30 mL, Oral, PRE-PROCEDURE ONCE, 1 dose, Starting Mon09/10/18 at 2040, Until Mon09/10/18 at 2054, Routine, Surgery/Procedure documented in this encounter Insurance Payer Benefit Plan / Subscriber ID Effective Dates Phone Address Type Group [place] [facility] [place] [facility] xxxxxxxxx 2018-Present Medicaid HEALTH PLAN - HEALTH MANAGED MEDICAID documented as of this encounter Advance Directives Name Relationship Healthcare Agent Relationship Communication Dalia Case Grandparent Primary healthcare agent [phone]
--- OUTSIDE RECORDS SUMMARY | 2018-12-17 03:50 | XMS REPORT | Summary of Care ---
:1995 Author Organization [facility] Address [address] [place] [id number] Care Team Providers Name Role Phone Doctor Unassigned, [place] Insurance Hmo Unavailable Sierra Lenz [facility] Primary Care Provider Reason for Visit Reason Comments Care 6WK Well Woman Exam Encounter Details Date Type Department Care Team Description 10/22/2018 Office Visit [facility]- Sierra Lenz Well woman exam (Primary Dx); Madie Su JEFFREY Encounter for other contraceptive management; [address] History of tubal ligation; [place], [place] HAYDE A Obesity (BMI 30-39.9) [id number] [place] [address] [phone] Allergies No Known Allergiesdocumented as of this encounter (statuses as of 10/22/2018) Medications Medication Sig Dispensed Refills Start Date End Date Status hydrocortisone 25 mg Insert 1 30 Suppository 1 04/26/2018 Active suppositoryIndicatio Suppository into ns: Hemorrhoids, rectum 2 (two) unspecified times daily. hemorrhoid type docusate calcium 240 Take 1 capsule 60 capsule 1 09/12/2018 Active mg by mouth once capsuleIndications: daily as needed 39 weeks gestation for of , Constipation. (spontaneous vaginal delivery), Multiparity ibuprofen 600 mg Take 1 tablet by 60 tablet 1 09/12/2018 Active tabletIndications: mouth every 6 39 weeks gestation (six) hours as of , needed for Pain (spontaneous vaginal (scale 1-3) or delivery), Pain (scale 4-6) Multiparity (Pain). Take with food or milk. Iron Fum & P-FA-Vit Take 1 capsule 30 capsule 2 09/12/2018 Active B & C No.9 (INTEGRA by mouth daily. PLUS) 125 mg iron- 1 mg CapIndications: 39 weeks gestation of , (spontaneous vaginal delivery) documented as of this encounter (statuses as of 10/22/2018) Active Problems Patient Care Coordination Note IOL 04/28/17 at 39w3d Problem Noted Date Well woman exam 10/22/2018 Contraceptive management 10/22/2018 History of tubal ligation 09/11/2018 Obesity (BMI 30-39.9) 01/16/2018 Influenza vaccination declined 01/16/2018 documented as of this encounter (statuses as of 10/22/2018) Resolved Problems Problem Noted Date Resolved Date Routine follow-up 10/01/2018 10/22/2018 Single live 09/11/2018 10/01/2018 fever 09/11/2018 10/01/2018 Pelvic pressure in 08/30/2018 10/01/2018 GBS (group B Streptococcus carrier), +RV culture, currently 08/27/20182018 Overview: Assess in Multiparity 01/16/2018 10/01/2018 Short interval between pregnancies affecting in first 01/16/2018 trimester, antepartum Family history of fraternal twins 01/16/2018 09/10/2018 Routine follow-up 05/22/2017 01/16/2018 anemia 04/30/2017 05/22/2017 Single liveborn 04/30/2017 05/22/2017 (spontaneous vaginal delivery) 04/30/2017 10/01/2018 Threatened labor at term 04/28/2017 05/22/2017 Morbid obesity with body mass index of 40.0-49.9 04/28/2017 01/16/2018 39 weeks gestation of 04/28/2017 10/01/2018 Anemia of mother in , antepartum 04/05/2017 05/22/2017 Primigravida, antepartum 01/24/2017 05/22/2017 Obesity in 08/31/2016 05/22/2017 High risk , antepartum 08/31/2016 10/01/2018 Pelvic cramping in antepartum period 08/31/2016 03/28/2017 documented as of this encounter (statuses as of 10/22/2018) Immunizations Name Administration Dates Next Due TDAP [...] Sign Reading Time Taken Comments Blood Pressure 101/72 10/22/2018 1:35 PM CDT Pulse 62 10/22/2018 1:35 PM CDT Temperature 36.7 C (98.1 F) 10/22/2018 1:35 PM CDT Respiratory Rate 16 10/22/2018 1:35 PM CDT Oxygen Saturation - - Inhaled Oxygen Concentration - - Weight 133.6 kg (294 lb 9 oz) 10/22/2018 1:35 PM CDT Height 170.2 cm (5' 7") 10/22/2018 1:35 PM CDT Body Mass Index 46.14 10/22/2018 1:35 PM CDT documented in this encounter Patient Instructions Patient InstructionsMark Espinoza RN - 10/22/2018 1:15 PM CDT Understanding STDs When it comes to sex, nothing is risk-free. Any sexual contact with the penis, vagina, anus, or mouth can spread a sexually transmitted disease (STD). The only sure way to prevent STDs is abstinence (not having sex). But there are ways to make sex safer. Use a latex condom each time you have sex. And choose your partner wisely. Use condoms for safer sex If you have sex, latex condoms provide the best protection against STDs. Latex condoms stop the exchange of body fluids that carry certain STDs. They also limit contact with affected skin. Be aware though, a condom doesnt cover all skin. So, affected skin that is not covered can still transfer disease. But you re safer with a condom than without one. Use a condom even if you use other control. While control methods like the pill or IUD help prevent , they do not protect against STDs. Choose the right condom Condoms made of latex prevent disease best. If youre allergic to latex, use polyurethane condoms instead. Male condoms fit over the penis. Female condoms line the vagina. Before buying a condom, read the label to be sure it prevents disease. Some novelty condoms dont. The right lubricant helps Buy lubricated condoms or use lubricant. This provides greater comfort and reduces the risk of condom breakage. Use only water-based lubricants. Dont use oil, lotion, or petroleum jelly. They can weaken the condom, causing breakage. Also, you may want to choose lubricants without nonoxynol-9. Its now known that this spermicide does not prevent disease and may cause irritation. Use condoms correctly For condoms to work, they must be used the right way. Keep these tips in mind: Use a new latex condom each time you have sex. Slip the condom on the penis before any contact ismade. When ready to withdraw, hold the rim of the condom as the penis pulls out. This prevents the condom from slipping off. Check the expiration date before using a condom. Dont store condoms in places that can get hot, such as a car or a wallet that is carried in a back pocket. Get to know your partner Safer sex is a process. It involves getting to know your partner and making informed choices. Ask each other how many partners you have had in the past, and how many you have now. Find out if either ofyou has an STD. If you decide to have sex, use a condom each time. Dont stop using condoms unlessyoure sure neither of you has other partners and youve both been tested to confirm you donthave STDs. Then stay free of disease by having sex only with each other (monogamy). Keep your cool Dont let alcohol or drugs cloud your judgment. They could lead you to have sex with someone you wouldnt have chosen if you were sober. Or, you might forget to use a condom. If you do plan to havesex, keep a latex condom with you. Dont wait until youre in the heat of passion to try to findone. Consider abstinence The only way to be sure you wont get an STD is to abstain from sex. Abstinence is a choice that many people make at some point in their lives. Maybe you want to wait until you are sure youre ready before you have sex. Maybe youd like a break from the responsibilities of sex for a while. Or maybe you just want to know your partner better before taking the next step. Abstinence is a choice youcan make now to protect your future. Date Last Reviewed: 01/07/201619994435-48[address] [employer] [place] [address], [place] [address]. All rights reserved. This information is not intended as a substitute for professional medical care. Always follow your healthcare professional's instructions. Prevention Guidelines,Women Ages 18 to 39 Screening tests and vaccines are an important part of managing your health. A screening test is doneto find possible disorders or diseases in people who don' t have any symptoms. The goal is to find a disease early so lifestyle changes can be made and you can be watched more closely to reduce the riskof disease, or to detect it early enough to treat it most effectively. Screening tests are not considered diagnostic, but are used to determine if more testing is needed. Health counseling is essential, too. Below are guidelines for these, for women ages 18 to 39. Talk with your healthcare provider tomake sure youre up-to- date on what you need. Screening Who needs it How often Alcohol misuse All women in this age group At routine exams Blood pressure All women in this age group Yearly checkup if your blood pressure is normal Normal blood pressure is less than 120/80 mm Hg If your blood pressure reading is higher than normal, follow the advice of your healthcare provider Breast cancer All women in this age group should talk with their healthcare providers about the needfor clinical breast exams (CBE)1 Clinical breast exam every 3 years1 Cervical cancer Women ages 21 and older Women between ages 21 and 29 should have a Pap test every 3 years; women between ages 30 and 65 are advised to have a Pap test plus an HPV test every 5 years Chlamydia Sexually active women ages 25 and younger, and women at increased risk for infection (suchas having multiple sex partners) Every year if you're at risk or have symptoms Depression All women in this age group At routine exams Type 2 diabetes, prediabetes All women with no symptoms who are overweight or obese and have 1 or more other risk factors for diabetes At least every 3 years. Also, testing for diabetes during after the 24th week. Type 2 diabetes, prediabetes All women diagnosed with gestational diabetes Lifelong testing every 3 years Type 2 diabetes All women with prediabetes Every year Gonorrhea Sexually active women at increased risk for infection At routine exams Hepatitis C Anyone at increased risk At routine exams HIV All women should be tested at least once for HIV between the ages of 13 and 64 At routine exams.Those with risk factors for HIV should be tested at least annually. Obesity All women in this age group At routine exams Syphilis Women at increased risk for infection should talk with their healthcare provider At routineexams Tuberculosis Women at increased risk for infection should talk with their healthcare provider Ask your healthcare provider Vision All women in this age group At least 1 complete exam in your 20s, and 2 in your 30s Vaccine2 Who needs it How often Chickenpox (varicella) All women in this age group who have no record of this infection or vaccine 2doses; the second dose should be given 4 to 8 weeks after the first dose Hepatitis A Women at increased risk for infection should talk with their healthcare provider 2 dosesgiven at least 6 months apart Hepatitis B Women at increased risk for infection should talk with their healthcare provider 3 dosesover 6 months; second dose should be given 1 month after the first dose; the third dose should be given at least 2 months after the second dose and at least 4 months after the first dose Haemophilus influenzaeType B (HIB) Women at increased risk for infection should talk with their healthcare provider 1 to 3 doses Human papillomavirus (HPV) All women in this age group up to age 26 3 doses; the second dose should be given 1 to 2 months after the first dose and the third dose given 6 months after the first dose Influenza (flu) All women in this age group Once a year Measles, mumps, rubella (MMR) All women in this age group who have no record of these infections or vaccines 1 or 2 doses Meningococcal Women at increased risk for infection should talk with their healthcare provider 1 or more doses Pneumococcal conjugate vaccine (PCV13)and pneumococcal polysaccharide vaccine(PPSV23) Women at increased risk for infection should talk with their healthcare provider PCV13: 1 dose ages 19 to 65 (protects against 13 types of pneumococcal bacteria) PPSV23: 1 to2 doses through age 64, or 1 dose at 65 or older (protects against 23 types of pneumococcal bacteria) Tetanus/diphtheria/pertussis (Td/Tdap) booster All women in this age group Td every 10 years, or a one-time dose of Tdap instead of a Td booster after age 18 , then Td every 10 years Counseling Who needs it How often BRCA gene mutation testing for breast and ovarian cancer susceptibility Women with increased risk for having gene mutation When your risk is known Breast cancer and chemoprevention Women at high risk for breast cancer When your risk is known Diet and exercise Women who are overweight or obese When diagnosed, and then at routine exams Domestic violence Women at the age in which they are able to have children At routine exams Sexually transmitted infection prevention Women who are sexually active At routine exams Skin cancer Prevention of skin cancer in fair-skinned adults At routine exams Use of tobacco and the health effects it can cause All women in this age group Every visit 1 According to the ACS, women ages 20 to 39 years should have a clinical breast exam (CBE) as part of their routine health exam every 3 years. Breast self- exams are an option for women starting in their 20s.But the USPSTF does not recommend CBE. Date Last Reviewed: 11/06/201619990673-2175 [employer]. [address] [place] [address]. All rights reserved. This information is not intended as a substitute for professional medical care. Always follow your healthcare professional's instructions. Understanding HIV and AIDS If you know how HIV (human immunodeficiency virus) can get into your body and what happens once its there, youll be better prepared to protect yourself or others against this virus. A person withHIV can look and feel perfectly healthy. But that person can give HIV to others as soon as he or sheis infected with the virus. Note: Having unsafe or unprotected sex or sharing needles put you at risk for HIV. Talk with your healthcare provider about ways to protect yourself or a loved one from getting HIV. How HIV enters the body HIV is carried in semen, vaginal fluid, blood, and breast milk. During sex, HIV can enter the body through the fragile tissue that lines the vagina, penis, anus,and mouth. During drug use, tattooing, or body piercing, the virus can enter the bloodstream through a shared needle. A mother who has HIV can infect her child during childbirth and through . How HIV infection progresses After HIV enters the body, it attacks the immune system in stages. A person with HIV can infect others once the virus enters the bloodstream. HIV with no symptoms. A person with HIV may have no symptoms for years. A positive blood test for HIV antibodies 6 weeks to 6 months after HIV enters the body may be the only sign of infection. HIV with symptoms.Some people develop an illness similar to mononucleosis (or "mono") 2 to 4 weeksafter the virus enters the body. Symptoms may include swollen lymph glands, chills, fever, night sweats, weakness, weight loss, skin rashes, mouth ulcers, or sore throat. Symptoms may be mild at first and then slowly go away. In a very few individuals, symptoms may get progressively worse and last forlonger and longer periods. AIDS. AIDS is the last stage of HIV infection. Diseases and cancers begin to overcome the body. It is these diseases, not the virus itself, that cause . HIV may also attack the brain and nervous system, causing seizures and loss of memory and body movement. Date Last Reviewed: 12/08/201519993894-9186 [employer]. [address] [place] [address]. All rights reserved. This information is not intended as a substitute for professional medical care. Always follow your healthcare professional's instructions. Clinical Breast Exam Many health organizations recommend a yearly clinical breast exam. This exam may be done by a multiple drill operator, family healthcare provider, nurse practitioner, nurse gold leaf laborer, or specially trained nurse. Yearly breast exams help tomake surethat breast conditions are found early. Your healthcare providers role A healthcare professional knows the tests and follow-up care needed if a problem is found. Your clinical exam is also a great time to ask questions about breast self-exams. You can find out if yourechecking your breasts in the best way. Or you may want to ask how , breast implants, or breast reduction surgery affect the way you should check your breasts. Diagnostic tests If a clinical exam reveals a breast change, you may have other tests to find out more. These tests may include: Mammography. A low-dose X-ray of your breast tissue. Ultrasound. An imaging test that uses sound waves to create images of your breast. Biopsy. A small amount of breast tissue is removed by needle or by a cut ( incision). The tissue is then checked under a microscope. Guidelines for having clinical breast exams The [place] [employer] recommends that starting at age 29, you should have a clinical breast exam every 1 to 3 years. After age 40, have a clinical breast exam each year. If youre at higher risk for breast cancer, you may need exams more often. Risk factors for breast cancer may include: Being over 50 or postmenopausal Having a family history of breast cancer Having the BRCA1 or BRCA2 gene mutation or certain other gene mutations Having more menstrual periods due to starting menstruation early(before age 12) or having a late menopause (after age 55) Having no pregnancies Having a first after age 30 Being obese Having a history of radiation treatment to your chest area Exposure to JESUS during your mother's Not being active Drinking too much alcohol Having dense breast tissue Taking hormone therapy after menopause Other health organizations have different recommendations. Talk with your healthcare provider about what is best for you. Date Last Reviewed: 09/06/201619992697-0316 [employer] [place] [address]. All rights reserved. This information is not intended as a substitute for professional medical care. Always follow your healthcare professional's instructions. Breast Health: Breast Self-Awareness What is breast self-awareness? Breast self-awareness is knowing how your breasts normally look and feel. Your breasts change as yougo through different stages of your life. So its important to learn what is normal for your breasts. Breast self-awareness helps you notice any changes in your breasts right away. Report any changesto your healthcare provider. Why is breast self-awareness important? Many experts now say that women should focus on breast self-awareness instead of doing a breast self-examination (BSE). These experts include the [place] [employer], the U.S. Preventive Services Task Force, and the [place] [employer]. Some experts even advise notteaching women to do a BSE. Thats because research hasnt shown a clear benefit to doing BSEs. Breast self-awareness is different than a BSE. Breast self-awareness isnt about following a certain method and schedule. Its about knowing what's normal for your breasts. That way you can notice even small changes right away. If you see any changes, report them to your healthcare provider. Changes to look for Call your healthcare provider if you find any changes in your breasts that concern you. These changes may include: A lump Nipple discharge other than breastmilk, especially a bloody discharge Swelling A change in size or shape Skin irritation, such as redness, thickening, or dimpling of the skin Swollen lymph nodes in the armpit Nipple problems, such as pain or redness If you find a lump Contact your provider if you find lumpiness in one breast, feel something different in the tissue, or feel a definite lump. Sometimes lumpiness may be due to menstrual changes. But there may be reason for concern. Your provider may want to see you right away if you have: Nipple discharge that is bloody Skin changes on your breast, such as dimpling or puckering Its normal to be upset if you find a lump. But its important to contact your provider right away. Remember that most breast lumps are benign. This means they are not cancer. Date Last Reviewed: 09/06/201619996467-1012 [employer]. [address] [place] [address]. All rights reserved. This information is not intended as a substitute for professional medical care. Always follow your healthcare professional's instructions. Understanding [employer] MyPlate The USDA (U.S. Department of Agriculture) has guidelines to help you make healthy food choices. These are called MyPlate. MyPlate shows the food groups that make up healthy meals using the image of a place setting. Before you eat, think about the healthiest choices for what to put onto your plate or into your cup or bowl. To learn more about building a healthy plate, visit www.choosemyplate.gov. The food groups Fruits. Any fruit or 100% fruit juice counts as part of the Fruit Group. Fruits may be fresh, canned, frozen, or dried, and may be whole, cut-up, or pureed. Make half your plate fruits and vegetables. Vegetables. Any vegetable or 100% vegetable juice counts as a member of the Vegetable Group. Vegetables may be fresh, frozen, canned, or dried. They can be served raw or cooked and may be whole, cut-up, or mashed. Make half your plate fruits and vegetables. Grains. All foods made from grains are part of the Grains Group. These include wheat, rice, oats,cornmeal, and barley such as bread, pasta, oatmeal, cereal, tortillas, and grits. Grains should be no more than a quarter of your plate. At least half of your grains should be whole grains. Protein. This group includes meat, poultry, seafood, beans and peas, eggs, processed soy products(like tofu), nuts (including nut butters), and seeds. Make protein choices no more than a quarter ofyour plate. Meat and poultry choices should be lean or low fat. Dairy. All fluid milk products and foods made from milk that contain calcium , like yogurt and cheese, are part of the Dairy Group. (Foods that have little calcium, such as cream, butter, and cream cheese, are not part of the group.) Most dairy choices should be low-fat or fat-free. Oils. These are fats that are liquid at room temperature. They include canola , corn, olive, soybean, and sunflower oil. Foods that are mainly oil include mayonnaise, certain salad dressings, and soft margarines. You should have only 5 to 7 teaspoons of oils a day. You probably already get this muchfrom the food you eat. Date Last Reviewed: 09/06/201619994077-2796 [employer]. [address] [place] [address]. All rights reserved. This information is not intended as a substitute for professional medical care. Always follow your healthcare professional's instructions. Eating Heart-Healthy Foods Eating has a big impact on your heart health. In fact, eating healthier can improve several of your heart risks at once. For instance, it helps you manage weight, cholesterol, and blood pressure. Here are ideas to help you make heart- healthy changes without giving up allthe foods and flavors you love. Getting started Talk with your healthcare provider about eating plans, such as the DASH or Mediterranean diet. You may also be referred to a dietitian. Change a few things at a time. Give yourself time to get used to a few eating changes before adding more. Work to create a tasty, healthy eating plan that you can stick to for the rest of your life. Goals for healthy eating Below are some tips to improve your eating habits: Limit saturated fats and trans fats. Saturated fats raise your levels of cholesterol, so keep these fats to a minimum. They are found in foods such as fatty meats, whole milk, cheese, and palm and coconut oils. Avoid trans fats because they lower good cholesterol as well as raise bad cholesterol. Trans fats are most often found in processed foods. Reduce sodium (salt) intake. Eating too much salt may increase your blood pressure. Limit your sodium intake to 2,300 milligrams (mg) per day(the amount in 1 teaspoon of salt), or less if your healthcare provider recommends it. Dining out less often and eating fewer processed foods are two great ways to decrease the amount of salt you consume. Managing calories. A calorie is a unit of energy. Your body jacome calories for fuel, but if you eat more calories than your body jacome, the extras are stored as fat. Your healthcare provider can help you create a diet plan to manage your calories. This will likely include eating healthier foods as well as exercising regularly. To help you track your progress, keep a diary to record what you eat and how often you exercise. Choose the right foods Aim to make these foods ralph of your diet. If you have diabetes, you may have different recommendations than what is listed here: Fruits and vegetables provide plenty of nutrients without a lot of calories. At meals, fill half your plate with these foods. Split the other half of your plate between whole grains and lean protein. Whole grains are high in fiber and rich in vitamins and nutrients. Good choices include whole-wheat bread, pasta, and brown rice. Lean proteins give you nutrition with less fat. Good choices include fish, skinless chicken, and beans. Low-fat or nonfat dairy provides nutrients without a lot of fat. Try low-fat or nonfat milk, cheese, or yogurt. Healthy fats can be good for you in small amounts. These are unsaturated fats , such as olive oil,nuts, and fish. Try to have at least 2 servings per week of fatty fish, such as salmon, sardines, mackerel, rainbow trout, and albacore tuna. These contain omega-3 fatty acids, which are good for your heart. Flaxseed is another source of a heart-healthy fat. More on heart-healthy eating Read food labels Healthy eating starts at the grocery store. Be sure to pay attention to food labels on packaged foods. Look for products that are high in fiber and protein, and low in saturated fat, cholesterol, and sodium. Avoid products that contain trans fat. And pay close attention to serving size. For instance, if you plan to eat two servings, double all the numbers on the label. Prepare food right A de la cruz part of healthy cooking is cutting down on added fat and salt. Look on the internet for lower-fat, lower-sodium recipes. Also, try these tips: Remove fat from meat and skin from poultry before cooking. Skim fat from the surface of soups and sauces. Broil, boil, bake, steam, grill, and microwave food without added fats. Choose ingredients that spice up your food without adding calories, fat, or sodium. Try these items: horseradish, hot sauce, lemon, mustard, nonfat salad dressings, and vinegar. For salt-free herbs and spices, try basil, cilantro, cinnamon, pepper, and migue. Date Last Reviewed: 11/06/201619997758-3938 [employer]. [address] [place] [address]. All rights reserved. This information is not intended as a substitute for professional medical care. Always follow your healthcare professional's instructions. documented in this encounter Progress Notes Sierra Lenz, CNP - 10/22/2018 1:15 PM CDT Chief complaint: Chief Complaint Patient presents with Care 6WK Well Woman Exam HPI: the patient is here for WWE and contraceptive management. She reports she is doing well with noissues or concerns today. She declines the need for sti testing reporting no new sexual partners. She reports tubal ligation for control and is pleased with her method . Pt denies current or past physical, sexual or emotional abuse. Histories OB History Para Term AB Living 2 2 2 2 SAB TAB Ectopic Multiple Live Births 0 2 # Outcome Date GA Lbr Ancelmo/2nd Weight Sex Delivery Anes PTL Lv 2 Term 09/10/18 39w2d 9 lb 1.7 oz (4.13 kg) M NORMAL SPONT EPI N CHANTE 1 Term 04/29/17 39w4d 7 lb 13.6 oz (3.56 kg) F VAGINAL EPI CHANTE Past Medical History: Diagnosis Date Anemia of mother in , antepartum 04/05/2017 taking with iron Family History Problem Relation Age of Onset [...] Procedure Laterality Date APPENDECTOMY at age 10 TUBAL LIGATION N/A 09/11/2018 Surgeon: Flor Rossi MD; Location: Labor and Delivery - [place] Social History Socioeconomic History Marital status: Single Spouse name: Not on file Number of children: 1 Years of education: Not on file Highest [...] use: No Drug use: No Sexual activity: Not Currently Partners: Male control/protection: None Comment: Last intercourse: 09/09/2018 Lifestyle Physical activity: Days per week: Not on file Minutes per session: Not on file Stress: Not on file Relationships Social connections: Talks on phone: Not on file Gets together: Not on file Attends mormon service: Not on file Active member of [...] in the house, litter box precautions discussed. Patient lives with mother. Social History Substance and Sexual Activity Sexual Activity Not Currently Partners: Male control/protection: None Comment: Last intercourse: 09/09/2018 Labs No new labs and Admission on 09/10/2018, Discharged on 09/12/2018 Component Date Value HBsAg 09/10/2018 Negative HBsAg Semi-Quantitative 09/10/2018 0.06 Syphilis IgG/IgM 09/10/2018 Non-reactive ABO & RH 09/10/2018 O POSITIVE IAT 09/10/2018 Negative Case Report 09/11/2018 Value:Surgical Pathology Case: [id number] Authorizing Provider: Flor Rossi MD Collected: 2018 0121 Ordering Location: Labor and Delivery ([facility]) Received: 2018 0836 Pathologist: Sagrario Garrido MD Specimens: A) - FALLOPIAN TUBE, RIGHT B) - FALLOPIAN TUBE, LEFT Final Diagnosis 09/11/2018 Value:This result contains rich text formatting which cannot be displayed here. Clinical Information 09/11/2018 Value:23yo s/p ; MPDPS Gross Description 09/11/2018 Value:This result contains rich text formatting which cannot be displayed here. WBC 09/11/2018 16.33* RBC 09/11/2018 3.89* HGB 09/11/2018 10.0* HCT 09/11/2018 30.8* MCV 09/11/2018 79.2* MCH 09/11/2018 25.7* MCHC 09/11/2018 32.5 RDW-SD 09/11/2018 41.1 RDW-CV 09/11/2018 14.4 PLT 09/11/2018 214 MPV 09/11/2018 10.6 NRBC/100 WBC 09/11/2018 0.0 NRBC x10^3 09/11/2018 <0.01 GRAN MAT (NEUT) % 09/11/2018 86.5 IMM GRAN % 09/11/2018 0.90 LYMPH % 09/11/2018 8.2 MONO % 09/11/2018 4.2 EOS % 09/11/2018 0.0 BASO % 09/11/2018 0.2 GRAN MAT x10^3(ANC) 09/11/2018 14.13* IMM GRAN x10^3 09/11/2018 0.14* LYMPH x10^3 09/11/2018 1.34 MONO x10^3 09/11/2018 0.69 EOS x10^3 09/11/2018 <0.03* BASO x10^3 09/11/2018 0.03 Routine Visit on 08/30/2018 Component Date Value POCT U SP GRAV 08/30/2018 . POCT PH U 08/30/2018 . POCT U LEUK EST 08/30/2018 . POCT U NIT 08/30/2018 . POCT U PROT 08/30/2018 Trace POCT U GLU 08/30/2018 Neg POCT U KETONE 08/30/2018 . POCT U UROBILI 08/30/2018 . POCT U BILI 08/30/2018 . POCT U BLD 08/30/2018 . Routine Visit on 08/23/2018 Component Date Value [...] 08/02/2018 . POCT U BLD 08/02/2018 . Radiology No new radiology. Allergies Kamille has No Known Allergies. Medications Kamille has a current medication list which includes the following prescription(s) : iron fum & p-fa-vit b & c no.9, docusate calcium, ibuprofen, and hydrocortisone. Review of Systems Constitutional: Negative. HENT: Negative. Eyes: Negative. Respiratory: Negative. Breasts: Negative. Cardiovascular: Negative. Gastrointestinal: Negative. Genitourinary: Negative. Musculoskeletal: Negative. Skin: Negative. Neurological: Negative. Psychiatric/Behavioral: Negative. Endocrine: Endocrine negative BP 101/72 (BP Location: Right arm, Patient Position: Sitting, BP CUFF SIZE: Adult Large) | Pulse 62 | Temp 36.7 C (98.1 F) (Oral) | Resp 16 | Ht 5' 7 " (1.702 m) | Wt 294 lb 9 oz (133.6 kg) | LMP 10/21/2018 | ? No | BMI 46.14 kg/m Pregravid BMI: 47.4 Physical Exam Vitals reviewed. Constitutional: She is oriented to person, place, and time. She appears well- developed. Her body habitus is normal. Neck: No tenderness and no mass. No thyroid nodules and no thyromegaly palpated. No neck adenopathy. Cardiovascular: Regular rate and rhythm. No gallop, no friction rub and no murmur auscultated. No peripheral edema present. Pulmonary/Chest: Breath sounds clear to auscultation. Normal inspiratory effort. Abdominal: Abdomen is soft. No mass palpated. No tenderness present. There is no hepatosplenomegaly,splenomegaly or hepatomegaly. There is no rigidity. No hernia palpated or inspected. Neuro/Psychiatric: She has a normal mood and affect. She is oriented to person, place, and time. Skin: No lesion, no rash and no ulceration present. Lymphadenopathy: No neck adenopathy present. No axillary adenopathy present. No inguinal adenopathy present. Breast: Right breast exhibits no mass, no nipple discharge and no tenderness. Left breast exhibits no mass, no nipple discharge and no tenderness. Breasts are symmetrical. Normal left breast and normalright breast Rectal: Rectal exam with normal anal tone. No mass, no external hemorrhoid and no internal hemorrhoid palpated or inspected. External genitalia: Normal external genitalia appropriate for age. Normal hair distribution. No labial lesion. Urethral meatus: Normal urethral meatus size, location and no lesion. No prolapse present. Normal urethral meatus Urethra: Normal urethra. No urethral tenderness, no mass and no urethral scarring palpated. Bladder: Bladder has no fullness, no mass palpated and no tenderness. Normal bladder Vagina:No lesion inspected. Normal estrogen effect. Normal support. Vaginal discharge found. Blood noted on exam (patient reports she started her cycle 2 days ago) Cervix: Normal cervix. No lesion. No tenderness and no discharge present. Uterus: Uterus is normal size, normal contour, normal position and non-tender. Normal uterus Adnexa: Right adnexa without tenderness, ovary enlargement or mass. Left adnexa without tenderness, ovary enlargement or mass. Normal left adnexa and normal right adnexa Anus/perineum: Normal perineum and normal anus. Assessment/Plan Return to clinic in 1 year for WWE or sooner as needed Rubella/VZV: immune BMI: 47 Td: 2019 Pap Smear: 2017 Gardasil: pending Mammogram:na Guaiac:na Colonoscopy:na Well woman exam (primary encounter diagnosis) Comment: routine Plan: return in 1 year Encounter for other contraceptive management History of tubal ligation Comment: pleased with method Plan: as needed mgmt Obesity (BMI 30-39.9) Comment: see bmi Plan: limit weight gain and sensible diet. This visit did not involve counseling and coordination that comprised more than 50% of the visit time. ZITA Vera 10/22/2018 2:42 PM Mark Grace RN - 10/22/2018 1:15 PM CDT23 year old presents to the clinic for wwe. 1) Previous BCM: BTL 2) Desired BCM: None, BTL 3) LMP: 10/21/2018 4) Last Seffner: 09/09/2018 5) Last Pap: 08/31/2016 Results: Negative 6) Tdap: 2018 7) Gardasil: patient denies 8) C/O: Patient denies any complaints. 9) Patient denies history of physical, emotional, or sexual abuse. Patient states that she currently feels safe at home. MARK ESPINOZA RN 10/22/2018 1:39 PM documented in this encounter Plan of Treatment Health Maintenance Due Date Last Done Comments HPV VACCINES (1 - Female 2008 3-dose series) INFLUENZA VACCINE (#1) 2018 PAP SMEAR 09/01/2019 08/31/2016 DTaP,Tdap,and Td Vaccines (3 07/05/2028 07/05/2018, - Td) 02/23/2017 PNEUMOCOCCAL 0-64 YEARS Aged Out No longer eligible based COMBINED SERIES on patient's age to complete this topic documented as of this encounter Results Not on filedocumented in this encounter Visit Diagnoses Diagnosis Well woman exam - Primary Routine general medical examination at a health care facility Encounter for other contraceptive management History of tubal ligation Tubal ligation status Obesity (BMI 30-39.9) Obesity, unspecified documented in this encounter Insurance Payer Benefit Plan / Subscriber ID Effective Dates Phone Address Type Group [facility] xxxxxxxxx 2018-Present Medicaid HEALTH PLAN - HEALTH MANAGED MEDICAID (Home) [place] [address] documented as of this encounter Advance Directives Name Relationship Healthcare Agent Relationship Communication Dalia Case Grandparent Primary healthcare agent [email or web address]
--- OUTSIDE RECORDS SUMMARY | 2018-12-17 03:50 | XMS REPORT | Summary of Care ---
:1995 Author Organization [facility] Address [address] [place] [id number] Care Team Providers Name Role Phone Doctor Unassigned, Oliver Insurance Hmo Unavailable Sierra Lenz WHJEFFREY Primary Care Provider Reason for Visit Reason Comments Care 3WK (Routine) Status Reason Specialty Diagnoses / Referred By Referred To Procedures Contact Contact New Request OB Satellites Diagnoses High risk , antepartum 39 weeks gestation of (spontaneous vaginal delivery) Obesity affecting in third trimester GBS (group B Streptococcus carrier), +RV culture, currently Single live Sanaz Harley FNP Status post tubal ligation fever Multiparity Short interval between pregnancies affecting in first trimester, antepartum Influenza vaccination declined Pelvic pressure in [address] Procedures DISCHARGE FOLLOW-UP: [facility] [place] [address] Encounter Details Date Type Department Care Team Description 10/01/2018 Routine [facility]MP- Delfin, Routine Visit [place] ZITA Landin follow-up (Primary [address] Dx) [facility] [phone] [facility] [phone] [place] [id number] Allergies No Known Allergiesdocumented as of this encounter (statuses as of 10/01/2018) Medications Medication Sig Dispensed Refills Start Date [...] as of this encounter (statuses as of 10/01/2018) Active Problems Patient Care Coordination Note IOL 04/28/17 at 39w3d Problem Noted Date Routine follow-up 10/01/2018 Status post tubal ligation 09/11/2018 Obesity (BMI 30-39.9) 01/16/2018 Influenza vaccination declined 01/16/2018 documented as of this encounter (statuses as of 10/01/2018) Resolved Problems Problem Noted Date Resolved Date Single live 09/11/2018 10/01/2018 fever 09/11/2018 10/01/2018 [...] as of this encounter (statuses as of 10/01/2018) Immunizations Name Administration Dates Next Due TDAP [...] Sign Reading Time Taken Comments Blood Pressure 113/78 10/01/2018 10:03 AM CDT Pulse 67 10/01/2018 10:03 AM CDT Temperature 36.8 C (98.2 F) 10/01/2018 10:03 AM CDT Respiratory Rate 16 10/01/2018 10:03 AM CDT Oxygen Saturation - - Inhaled Oxygen Concentration - - Weight 134.3 kg (296 lb 2 oz) 10/01/2018 10:03 AM CDT Height 170.2 cm (5' 7") 10/01/2018 10:03 AM CDT Body Mass Index 46.38 10/01/2018 10:03 AM CDT documented in this encounter Patient Instructions Patient InstructionsMark Espinoza RN - 10/01/2018 9:15 AM CDT How to Bottle-Feed Newborns need nutrition and plenty of loving2 things you can supply while bottle-feeding. Both breastmilk and formula can be given to your baby in a bottle. Be sure to place the nipple on the tongue and well into your baby's mouth. Safety tip:Never heat breastmilk or formula in a microwave. This can result in uneven heating. Thehot formulamight burn your baby's mouth. Instead, warm the bottle by putting it in a bowl of warm (not hot) water. Using hot water to heat formula or breastmilk can burn your baby's mouth or throat. Test the temperature of theformulaby dripping a few dropson your wrist. Make sure it is a warmtemperature before giving it to your baby. Bottle care No matter if you use breastmilk or formula, the bottles, nipples, and tools you use to get the formula ready must be clean. Below are suggestions for bottle care, but talk with your healthcare provider about how to care for bottles: Wash your hands before you mix formula, fill a bottle, or offer a bottle. Do this every time. If soap and water aren't available, use an alcohol-based hand brass cleaner. Clean glass bottles and nipples in the lay out carpenter. Use the hot water setting with a hot drying cycle. Or wash the bottles and nipples with hot, soapy water. Be sure to rinse both completely. Boil them for 5 minutes and cool them. If you use plastic bottles with disposable liners, you will still need to make sure the bottles and nipples are clean. Store clean, unused bottles and nipples with the nipple end facing into the bottle (inverted). Put the bottle caps on the bottles to keep the nipples clean. Facts on formula Baby formulais made from cows milk or soybeans.Formula made from cows milk is more commonly used. But you may need to use formula made from soybeans. Your babys healthcare provider may tell you to use soybean-based formula if your family has a history ofallergiesor your baby has certain health conditions. All formula used should include iron. Qthpi-ch-zxis formula Itdbv-uf-xdwl formula is the easiest to use, but it also costs the most.Brand names cost more thanstore-brand formulas because these companies spend more money on advertising. Pour the desired amount of psluf-ux-sscd formula into the baby's clean bottle. Once you open the container of formula, it must be stored in the refrigerator. It can only be stored for 24 hours. If not refrigerated, the formula is only safe at room temperature for 1 hour. After that, it mustbe thrown out. You can fill bottles with the formula up to 24 hours ahead of time.You must keep them refrigerated untilyou use them. If your baby does not finish drinking a bottle within 2 hours, throw away the unfinished formula. Ask your healthcare provider how much formula to offer your baby at each feeding. Concentrated liquid formulas Concentrated liquid formulas need to be mixed with water before using. Follow thedirectionson the canclosely. Using too much or too little water may harm your baby.Follow these tips: Use water that has been boiled and then cooled. Pour the whole can of concentrated liquid formula into a clean pitcher. Fill the can with water to the top and add it to the pitcher. Mix well. Pour the desired amount of formula into your baby's clean bottle. Store the pitcher of mixed formula in the refrigerator. Keep it for only 24 hours. If not refrigerated, the formula is only safe at room temperature for 1 hour. After that, it must be thrown out. Ask your healthcare provider how much formula to offer your baby at each feeding. Concentrated powder formulas Powdered formulas must be mixed with water before using. Liquid formulas have no germs (sterile). But powdered formula can get germs (bacteria) in it when you make it or when you store it. Follow thesetips to protect your baby from getting sick from these germs: Concentrated powder formulas need to be mixed with clean, boiled water before using. Wash and dry the top of the formula can before you open it. Make sure the can vp outcomes, spoons, scoops, and other tools you use to make the formula are clean. Use very hot water to mix with the formula powder. This means water that is 158F (70C). Dont mix the formula with water until right before you are going to feed your baby. Add the right amount of hot water to the bottle. Then add the right amount of powdered formula. Its important to add the water to the first. Adding the formula first may make it too strong and cause diarrhea. Mix the water and formula well. Test the temperature of the mixed formula by shaking a few drops on your wrist. If it is too hot,cool it by running the bottle under cool tap water. Or put the bottle in an ice bath. Make sure the cooling water does not get into the bottle or on the nipple. If you dont plan to use the prepared formula right away, put it in the refrigerator and use itwithin 24 hours. It is important to keep the dry powder in the formula can clean to prevent bacteria from growing. Ask your healthcare provider how much formula to offer your baby at each feeding. Holding baby and bottle To hold your baby and feed him or her with a bottle, follow these tips: Cradle your baby in your arm, holding your babys head slightly higher thanhis or her bottom. Using the correct position can lower the chance that your baby will choke. Stroke your babyslower lip. When your babys mouth opens, place the nipple on the tongueand feel him or her pull the nipple into the mouth. Tip the bottle so the nipple fills with milk. Forsafety'ssake, never prop the bottle.Your baby can choke if you leave him or her alone with a propped bottle. Feeding your can be a time of bonding and building trust. Hold your baby close to your body, make eye contact, and talk to your baby. Don't let your baby fall asleep while sucking on a bottle. This can lead to tooth decay when he or she is older. If your baby seems hungry but isn't eating well, you can try a different shaped nipple. You might also check the nipple opening. Some babies prefer a faster flow of milk. They can get frustrated when the flow is too slow. If your baby is gagging and choking, you might need a nipple with a smaller hole. The smaller hole slows the flow. Juliette with bottle nipples. Let your baby choose which bottle nipple is best for him or her. Burping your baby It is easy for babies to swallow air while bottle-feeding. Burping helps your baby get rid of that air.Tips on burping your baby include: Burp your babywhen he or she acts restless, tries to turn away from the nipple, or slows his orher sucking.This is usually after eating every 1/2 to 1 ounce of formula and when he or she is finished feeding. Your baby can be burped sitting up while you hold the babys jaw, lying face down across your lap, oruprightwith his or her belly against your shoulder. Feeding cues Don't wait for your baby to cry before feeding. Crying is too late of a sign that your baby is ready to eat. Your baby is ready to feed when your baby flutters his or her eyes and moves his or her hands to the mouth as he or she wakes up. Don't force your baby to finish the bottle. This can lead to obesity. Respect cues that he or she is finished. These include letting go of the bottle, turning his or her head away, looking sleepy, or stopping feeding. Offer a pacifier if your baby acts like he or she wants to suckle after finishing the amount of formula your healthcare provider recommended. Babies enjoy sucking. But bottle-fed babies may feed so fast that they dont get enough suckling time. Date Last Reviewed: 04/06/201619993103-[address] [employer] [place] [address], [place] [address]. All rights reserved. This information is not intended as a substitute for professional medical care. Always follow your healthcare professional's instructions. Understanding Depression Youve just had a baby. You expected to be excited and happy. But instead you find yourself cryingfor no reason. You may have trouble coping with your daily tasks. You feel sad, tired, and hopeless most of the time. You may even feel ashamed or guilty. But what youre going through is not your fault and you can feel better. Talk to your healthcare provider. He or she can help. What is depression? Depression is a mood disorder that affects the way you think and feel. The most common symptom is a feeling of deep sadness. You may also feel as if you just cant cope with life. Other symptoms include: Gaining or losing a lot of weight Sleeping too much or too little Feeling tired all the time Feeling restless Crying a lot Having too little or too much appetite. Withdrawing from friends and family Having headaches, aches and pains, or stomach problems that won't go away. Fears of harming your baby Lack of interest in your baby Feeling worthless or guilty No longer finding pleasure in things you used to Having trouble thinking clearly or making decisions Thinking about or suicide Depression after childbirth You may be weepy and tired right after giving . These feelings are normal. Theyre sometimes called the baby blues. These blues go away after 1 to 2 weeks. However, (meaning after ) depression lasts much longer and is more severe than the "baby blues." It can make you feel sad and hopeless. You may also fear that your baby will be harmed and worry about being a bad mother. What causes depression? The exact cause of depression is unknown. Changes in brain chemistry or structure are believed to play a big role in depression.It may be due to changes in your hormones during and after childbirth. You may also be tired from caring for your baby and adjusting to being a mother. All thesefactors may make you feel depressed. In some cases, your genes may also play a role. Depression can be treated There are many ways to treat depression. Talking to your healthcare provider is the firststep toward feeling better. When to call your healthcare provider Call your healthcare provider if you: Cry for no clear reason Have trouble sleeping, eating, and making choices Questions whether you can handle caring for a baby Have intense feelings of sadness, anxiety, or despair that prevent you from being able to do yourdaily tasks Resources National [place] of Mental Owkgfi038-402-1282ihk.[facility].nih.gov National [place] on Mental Ahqemle062-246-7071kbq.[facility].org Mental Health Ljrucqd756-213-3207tlu.[facility].org National Suicide Vmvtlah347-304-6339 (800-SUICIDE) Date Last Reviewed: 08/06/201619993596-6389 [employer]. [address] [place] [address]. All rights reserved. This information is not intended as a substitute for professional medical care. Always follow your healthcare professional's instructions. Well-Baby Checkup: Up to 1 Month Its fine to take the baby out. Avoid prolonged sun exposure and crowds where germs can spread. After your first visit, your baby will likely have a checkup within his or her first month of life. At this checkup, the healthcare provider will examine the baby and ask how things are going at home. This sheet describes some of what you can expect. Development and milestones The healthcare provider will ask questions about your baby. He or she will observe the baby to get an idea of the infants development. By this visit, your baby is likely doing some of the following: Smiling for no apparent reason (called a spontaneous smile) Making eye contact, especially during feeding Making random sounds (also called vocalizing) Trying to lift his or her head Wiggling and squirming. Each arm and leg should move about the same amount. If not, tell the healthcare provider. Becoming startled when hearing a loud noise Feeding tips At around 2 weeks of age, your baby should be back to his or her weight. Continue to feed yourbaby eitherbreastmilk or formula. To help your baby eat well: During the day, feed at least every 2 to 3hours. You may need to wake the baby for daytime feedings. At night, feed when the baby wakes, often every 3 to 4hours. You may choose not to wake the baby for nighttime feedings. Discuss this with the healthcare provider. sessions should last around 15 to 20minutes. Witha bottle, lowly increase the amount of formula or breastmilk you give your baby.By 1 month of age, most babies eat about 4 ouncesper feeding, but this can vary. If youre concerned about how much or how often your baby eats, discuss this with the healthcare provider. Ask the healthcare provider if your baby should take vitamin D. Don'tgive the baby anything to eat besides breastmilk or formula. Your baby is too young for solid foods (solids) or other liquids. An infant this age does not need to be given water. Be aware that many babies begin to spit up around 1 month of age. In most cases, this is normal. Call the healthcare provider right away if the baby spits up often and forcefully, or spits up anything besides milk or formula. Hygiene tips Some babies poop (have a bowel movement) a few times a day. Others poop as little as once every 2to 3days. Anything in this range is normal. Change the babys diaper when it becomes wet or dirty. Its fine if your baby poops even less often than every 2 to 3days if the baby is otherwise healthy. But if the baby also becomes fussy, spits up more than normal, eats less than normal, or has very hard stool, tell the healthcare provider. The baby may be constipated (unable to have a bowel movement). Stool may range in color from mustard yellow to brown to green. If the stools are another color, tell the healthcare provider. Bathe your baby a few times per week. You may give baths more often if the baby enjoys it. But because youre cleaning the baby during diaper changes, a daily bath often isnt needed. Its OK to use mild (hypoallergenic) creams or lotions on the babys skin. Avoid putting lotion on the babys hands. Sleeping tips At this age, your baby may sleep up to 18 to 20hours each day. Its common for babies to sleep for short spurts throughout the day, rather than for hours at a time. The baby may be fussy before going to bed for the night (around 6 p.m. to 9 p.m.). This is normal. To help your baby sleep safely andsoundly: Put your baby on his or her back for naps and sleeping until your child is 1 year old. This can lower the risk for SIDS, aspiration, and choking. Never put your baby on his or her side or stomach for sleep or naps. When your baby is awake, let your child spend time on his or her tummy as long as you are watching your child. This helps your child build strong tummy and neck muscles. This will also help keep your baby's head from flattening. This problem can happen when babies spend so much time ontheir back. Ask the healthcare provider if you should let your baby sleep with a pacifier.Sleeping with a pacifier has been shown to decrease the risk for SIDS. But it should not be offered until after has been established. If your baby doesn't want the pacifier, don't try to force him or her to take one. Don't put a crib bumper, pillow, loose blankets, or stuffed animals in the crib. These could suffocate the baby. Don't put your baby on a couch or armchair for sleep. Sleeping on a couch or armchair puts the baby at a much higher risk for , including SIDS. Don't use infant seats, car seats, strollers, carriers, or swings for routine sleepand daily naps. These may cause a baby's airway to become blocked or the baby to suffocate. Swaddling (wrapping the baby in a blanket) can help the baby feel safe and fall asleep. Make sureyour baby can easily move his or her legs. Its OK to put the baby to bed awake. Its also OK to let the baby cry in bed, but only for afew minutes. At this age, babies arent ready to cry themselves to sleep. If you have trouble getting your baby to sleep, ask the health care provider for tips. Don't share a bed (co-sleep) with your baby. Bed-sharing has been shown to increase the risk for SIDS. The [place] [employer] says that babies should sleep in the same room as their parents. They should be close to their parents' bed, but in a separate bed or crib. This sleeping setup should be done for the baby's first year, if possible. But you should do it for at least the first 6 months. Always put cribs, bassinets, and play yards in areas with no hazards. This means no dangling cords, wires, or window coverings. This will lower the risk for strangulation. Don't use baby heart rate and monitors or special devices to help lower the risk for SIDS. These devices include wedges, positioners, and special mattresses. These devices have not been shown to prevent SIDS. In rare cases, they have caused the of a baby. Talk with your baby's healthcare provider about these and other health and safety issues. Safety tips To avoid jacome, dont carry or drink hot liquids, such as coffee, near the baby. Turn the waterheater down to a temperature of 120F (49C) or below. Dont smoke or allow others to smoke near the baby. If you or other family members smoke, do sooutdoors while wearing a jacket, and then remove the jacket before holding the baby. Never smoke around the baby Its usually fine to take a out of the house. But stay away from confined, crowded places where germs can spread. When you take the baby outside, don't stay too long in direct sunlight. Keep the baby covered, orseek out the shade. In the car, always put the baby in a rear-facing car seat. This should be secured in the back seat according to the car seats directions. Never leave the baby alone in the car. Don't leave the baby on a high surface such as a table, bed, or couch. He or she could fall and get hurt. Older siblings will likely want to hold, play with, and get to know the baby. This is fine as long as an adult supervises. Call the healthcare provider right awayif the baby has a fever (see Fever and children, below). Vaccines Based on recommendations from the CDC, your baby may get thehepatitis B vaccine if he or she did not already get it in the hospital after . Having your baby fully vaccinated will also help loweryour baby's risk for SIDS. Fever and children Always use a digital thermometer to check your kenia temperature. Never use a mercury thermometer. For infants and toddlers, be sure to use a rectal thermometer correctly. A rectal thermometer may accidentally poke a hole in (perforate) the rectum. It may also pass on germs from the stool. Always follow the product makers directions for proper use. If you dont feel comfortable taking a rectaltemperature, use another method. When you talk to your kenia healthcare provider, tell him or her which method you used to take your child s temperature. Here are guidelines for fever temperature. Ear temperatures arent accurate before 6 months of age. Dont take an oral temperature until your child is at least 4 years old. under 3 months old: Ask your kenia healthcare provider how you should take the temperature. Rectal or forehead (temporal artery) temperature of 100.4F (38C) or higher, or as directed bythe provider Armpit temperature of 99F (37.2C) or higher, or as directed by the provider Signs of depression Its normal to be weepy and tired right after having a baby. These feelings should go away in about a week. If youre still feeling this way, it may be a sign of depression, a more serious problem. Symptoms may include: Feelings of deep sadness Gaining or losing a lot of weight Sleeping too much or too little Feeling tired all the time Feeling restless Feeling worthless or guilty Fearing that your baby will be harmed Worrying that youre a bad parent Having trouble thinking clearly or making decisions Thinking about or suicide If you have any of these symptoms, talk to your [facility] or another healthcare provider. Treatment canhelp you feel better. Next checkup at: PARENT NOTES: Date Last Reviewed: 12/08/201519997243-0[address] [employer]. [address] [place] [address], [place] [address]. All rights reserved. This information is not intended as a substitute for professional medical care. Always follow your healthcare professional's instructions. After a Vaginal After having a baby, your body may be very tired. It can take time to recover from a vaginal delivery. You may stay in the hospital or center from 1 to 4 days.In some cases, you may be able to go home the same day. Right after the delivery Your temperature and blood pressure will be taken until they are stable. A nurse or other healthcareprovider will observe you as you rest. You may have afterbirth pains. These are cramps caused by theuterus shrinking. Sanitary pads are used to soak up the discharge of the uterine lining. To make sure that you arent bleeding too much, the pad will be checked. And the firmness of your uterus will be checked. To do this, a nurse will gently push down on your stomach. If you had anesthesia, youll be watched closely until you can feel and move your toes. If you have perineal pain (pain between the vagina and anus) , an ice pack can help. [place] care While still in the hospital or center, youll learn how to hold and feed your baby. You willalso be given instructions on how to care for your baby. This includes bathing and feeding. Preparing to go home You may be anxious to go home as soon as possible. Before you and your baby go home, a healthcare provider will check to be sure you are healthy enough to take care of your baby and yourself. Youre ready to go home when: You can walk to the bathroom and use the bathroom without help. You can eat solid food and swallow pills (if needed). You have no sign of infection or other health problems, including fever. You have adequate pain control. Your bleeding isn't excessive. You are able to care for your and are emotionally stable. Before leaving the hospital or center, youll be given written instructions for home self-care after vaginal delivery. Be sure to follow these instructions carefully. If you have questions or concerns, talk about them now. If you have stitches You may have received stitches in the skin near your vagina. The stitches might have closed an episiotomy (an incision that enlarges the opening of the vagina) . Or you may have needed stitches to repair torn skin. Either way, your stitches should dissolve within weeks. Until then, you can help reduce discomfort, aid healing, and reduce your risk of infection by keeping the stitches clean. These tips can help: Gently wipe from front to back after you urinate or have a bowel movement. After wiping, spray warm water on the area. Or you can have a sitz bath. This means sitting in a tub with a few inches of water in it. Then pat the area dry or use a hairdryer on a cool setting. Do not use soap or any solution except water on the area. You can take a shower unless told not to. Change sanitary pads at least every [address] cold or heat packs on the area as directed by your healthcare providers or nurses. Keep a thin towel between the pack and your skin. Sit on firm seats so the stitches pull less. follow-up Schedule a follow-up exam with your healthcare provider for about 6 weeks after delivery. During this exam, your uterus and vaginal area will be checked. Contact your healthcare provider if you think you or your baby are having any problems. When to call your healthcare provider Call your healthcare provider right away if you have: A fever of 100.4F (38.0C) or higher Bleeding that needs a new sanitary pad after an hour, or large blood clots Pain in your vagina that gets worse and isn't relieved with medicine Swelling, discharge, or increased pain from vaginal tear or episiotomy Burning, pain, red streaks, or lumpy areas in your breasts that may be accompanied by flu-like symptoms Cracks, blisters, or blood on your nipples Burning or pain when you urinate Nausea or vomiting Dizziness or fainting Feelings of extreme sadness or anxiety, or a feeling that you dont want to be with your baby Belly pain that isnt relieved with medicine Vaginal discharge that has a bad odor No bowel movement for 5 days Painful urination, or inability to control urination Redness, warmth, or pain in the lower leg Chest pain Date Last Reviewed: 01/06/201719991549-[address] [employer] [place] [address]. All rights reserved. This information is not intended as a substitute for professional medical care. Always follow your healthcare professional's instructions. documented in this encounter Progress Notes Sierra Lenz, CNP - 10/01/2018 9:15 AM CDT Chief complaint: Chief Complaint Patient presents with Care 3WK HPI The patient is here for a routine PP visit. She has no complaints today. She states that she is /formula feeding her infant, is bonding well , and coping well with less sleep. She reports that she has no pain, small lochia, and denies all s/s of PP depression. She received tubal for PP contraception. Histories OB History Para Term AB Living [...] Rossi MD; Location: Labor and Delivery - [place] Social History Socioeconomic History Marital status: Single [...] file Gets together: Not on file Attends buddhism service: Not on file Active member of [...] intercourse 12/21/2017 Labs No new labs and Admission on 09/10/2018, Discharged on 09/12/2018 Component Date Value HBsAg 09/10/2018 Negative HBsAg Semi-Quantitative 09/10/2018 0.06 Syphilis IgG/IgM 09/10/2018 Non-reactive ABO & RH 09/10/2018 O POSITIVE IAT 09/10/2018 Negative Case Report 09/11/2018 Value:Surgical Pathology Case: [id number] Authorizing Provider: Flor Rossi MD Collected: 2018 0121 Ordering Location: Labor and Delivery ([facility]) Received: 2018 0836 Pathologist: Sagrario Garrido [...] 07/05/2018 trace POCT U GLU 07/05/2018 neg Radiology No new radiology. Allergies Kamille has No Known Allergies. Medications Kamille has a current medication list which includes the following prescription(s) : docusate calcium, ibuprofen, iron fum & p-fa-vit b & c no.9, and hydrocortisone. Review of Systems Constitutional: Negative. HENT: Negative. Eyes: Negative. Respiratory: Negative. Breasts: Negative. Cardiovascular: Negative. Gastrointestinal: Negative. Genitourinary: Negative. Musculoskeletal: Negative. Skin: Negative. Neurological: Negative. Psychiatric/Behavioral: Negative. Endocrine: Endocrine negative BP 113/78 (BP Location: Right arm, Patient Position: Sitting, BP CUFF SIZE: Adult Large) | Pulse 67 | Temp 36.8 C (98.2 F) (Oral) | Resp 16 | Ht 5' 7 " (1.702 m) | Wt 296 lb 2 oz (134.3 kg) | LMP 12/09/2017 | BMI 46.38 kg/m Pregravid BMI: 47.4 Physical Exam Vitals reviewed. Constitutional: She is oriented to person, place, and time. She appears well- developed, well-nourished and well-groomed. Cardiovascular: Regular rate and rhythm. No peripheral edema present. Pulmonary/Chest: Normal inspiratory effort. Abdominal: Abdomen is soft. Normal appearance. No mass palpated. No tenderness present. There is no hepatosplenomegaly, splenomegaly or hepatomegaly. There is no rigidity and no guarding. No hernia palpated or inspected. Fundus firm Neuro/Psychiatric: She has a normal mood and affect. She is oriented to person, place, and time. Skin: Skin normal. Breast: Right breast exhibits no mass, no nipple discharge and no tenderness. Left breast exhibits no mass, no nipple discharge and no tenderness. Breasts are symmetrical. Normal left breast and normalright breast Rectal: Rectal exam with normal anal tone. No mass, no external hemorrhoid and no internal hemorrhoid palpated or inspected. normal rectum External genitalia: Normal external genitalia appropriate for age. Normal hair distribution. No labial lesion. Vagina:No lesion inspected. Normal estrogen effect. Normal support. Vaginal discharge found. Lochia WNL, small rubra Uterus: Uterus is normal size, normal contour, normal position and non-tender. Involution WNL Normal uterus Assessment/Plan Return to clinic in 3 weeks. Routine follow-up (primary encounter diagnosis) Comment: routine pp visit Plan: routine pp care This visit did not involve counseling and coordination that comprised more than 50% of the visit time. ZITA Vera 10/01/2018 10:27 AM Mark Grace RN - 10/01/2018 9:15 AM CDTPt in clinic today for 3 wk pp visit. 1) Delivery method Vaginal 2) Patient delivered on 09/10/2018 at [facility] 3) Patient is currently bottlefeeding) 4) Desired BCM: None, BTL 5) Patient denies pp depression Patient denies any bleeding, lochia, pelvic pain, and or fever. MARK ESPINOZA RN 10/01/2018 9:57 AM documented in this encounter Plan of Treatment Date Type Specialty Care Team Description 10/22/2018 Office Visit [facility] Sierra Lenz WHCNP [address] [place] [address] [phone] Health Maintenance Due Date Last Done Comments [...] filedocumented in this encounter Visit Diagnoses Diagnosis Routine follow-up - Primary documented in this encounter Insurance Payer Benefit Plan / Subscriber ID Effective Dates Phone Address Type Group [place] [facility] [place] [facility] xxxxxxxxx 2018-Present Medicaid HEALTH PLAN - HEALTH MANAGED MEDICAID documented as of this encounter Advance Directives Name Relationship Healthcare Agent Relationship Communication Dalia Case Grandparent Primary healthcare agent [email or web address]
--- OUTSIDE RECORDS SUMMARY | 2018-12-17 03:50 | XMS REPORT | Summary of Care ---
:1995 Author Organization [facility] Address [address] [place] [id number] Care Team Providers Name Role Phone Doctor Unassigned, [place] Insurance Hmo Unavailable Sierra Lenz [facility] Primary Care Provider Reason for Visit Reason Comments Care 6WK Well Woman Exam Encounter Details Date Type Department Care Team Description 10/22/2018 Office Visit [facility]- Sierra Lenz Well woman exam (Primary Dx); Madie Su JEFFREY Encounter for other contraceptive management; [address] History of tubal ligation; [place], [place] HAYDE A Obesity (BMI 30-39.9) [address] [place] [address] [phone] Allergies No Known Allergiesdocumented as of this [...] to protect your future. Date Last Reviewed: 01/07/201619991104-2527 [employer]. [address] [place] [address], [place] [address]. All rights reserved. This information is not [...] does not recommend CBE. Date Last Reviewed: 11/06/201619997829-7497 [employer]. [address] [place] [address]. All rights reserved. This information is not [...] memory and body movement. Date Last Reviewed: 12/08/201519991081-3187 [employer]. [address] [place] [address]. All rights reserved. This information is not intended as a substitute for professional medical care. Always follow your healthcare professional's instructions. Clinical Breast Exam Many health organizations recommend a yearly clinical breast exam. This exam may be done by a custom home installer, family healthcare provider, nurse practitioner, nurse tunnel heading inspector, or specially trained nurse. Yearly breast exams [...] Guidelines for having clinical breast exams The [place] [employer]stetricians and Gynecologists recommends that [...] is best for you. Date Last Reviewed: 09/06/201619995615-5570 [employer]. [address] [place] [address]. All rights reserved. This information is not [...] breast self-examination (BSE). These experts include the [place] [employer], the U.S. Preventive Services Task Force, and the [place] [employer] of Obstetricians and Gynecologists. Some experts [...] they are not cancer. Date Last Reviewed: 09/06/201619994727-1829 [employer]. [address] [place] [address]. All rights reserved. This information is not intended as a substitute for professional medical care. Always follow your healthcare professional's instructions. Understanding [employer] The USDA (U.S. Department of Agriculture) [...] the food you eat. Date Last Reviewed: 09/06/201619992166-1149 [employer]. [address] [place] [address]. All rights reserved. This information is not [...] cinnamon, pepper, and migue. Date Last Reviewed: 11/06/201619998174-2365 [employer]. [address] [place] [address]. All rights reserved. This information is not [...] Rossi MD; Location: Labor and Delivery - [place] Social History Socioeconomic History Marital status: Single [...] file Gets together: Not on file Attends samaritan service: Not on file Active member of [...] Negative Case Report 09/11/2018 Value:Surgical Pathology Case: [id number] Authorizing Provider: Flor Rossi MD Collected: 2018 0121 Ordering Location: Labor and Delivery ([facility]) Received: 2018 0836 Pathologist: Sagrario Garrido [...] None, BTL 3) LMP: 10/21/2018 4) Last Kell: 09/09/2018 5) Last Pap: 08/31/2016 Results: Negative [...] ID Effective Dates Phone Address Type Group [facility] CHILDRENS xxxxxxxxx 2018-Present Medicaid HEALTH PLAN - HEALTH MANAGED MEDICAID (Home) [place] [address] documented as of this encounter Advance Directives Name Relationship Healthcare Agent Relationship Communication Dalia Case Grandparent Primary healthcare agent [email or web address]
--- OUTSIDE RECORDS SUMMARY | 2018-12-17 03:50 | XMS REPORT | Summary of Care ---
:1995 Author Organization [facility] Address [address] [place] [address] Care Team Providers Name Role Phone Doctor Unassigned, [place] Insurance Hmo Unavailable Kennedy Rowe DELIVERY ANALYST Primary Care Provider Sierra Lenz [facility] Primary Care Provider Encounter Details Date Type Department Care Team Description 09/21/2018 Orders Only [facility] Doctor Unassigned, No [address] [facility] [place] [address] [address] [place] [address] Allergies No Known Allergiesdocumented as of this encounter (statuses as of 10/05/2018) Medications Medication Sig Dispensed Refills Start Date [...] as of this encounter (statuses as of 10/05/2018) Active Problems Patient Care Coordination Note IOL 04/28/17 at 39w3d Problem Noted Date Routine follow-up 10/01/2018 Status post tubal ligation 09/11/2018 Obesity (BMI 30-39.9) 01/16/2018 Influenza vaccination declined 01/16/2018 documented as of this encounter (statuses as of 10/05/2018) Resolved Problems Problem Noted Date Resolved Date [...] as of this encounter (statuses as of 10/05/2018) Immunizations Name Administration Dates Next Due TDAP [...] Description 10/22/2018 Office Visit [facility] Sierra Lenz, CNP [address] [place] [address] [phone] Health Maintenance Due Date Last Done Comments HPV VACCINES (1 - Female 2008 3-dose series) INFLUENZA VACCINE (#1) 2018 PAP SMEAR 09/01/2019 08/31/2016 DTaP,Tdap,and Td Vaccines (3 07/05/2028 07/05/2018, - Td) 02/23/2017 PNEUMOCOCCAL 0-64 YEARS Aged Out No longer eligible based COMBINED SERIES on patient's age to complete this topic documented as of this encounter Procedures Procedure Name Priority Date/Time Associated Diagnosis Comments STERILIZATION CONSENT Routine 09/21/2018 12:01 AM FORM CDT documented in this encounter Results Not on filedocumented in this encounter Insurance Payer Benefit Plan / Subscriber ID Effective Dates Phone Address Type Group [facility] CHILDRENS xxxxxxxxx 2018-Present Medicaid HEALTH PLAN - HEALTH MANAGED MEDICAID documented as of this encounter Advance Directives Name Relationship Healthcare Agent Relationship Communication Dalia Case Grandparent Primary healthcare agent [email or web address]
== END 2018-12-13 13:18 | disposition home or self-care (01) ==
LOC: ER 12:46
DX: H65.01 Acute serous otitis media, right ear (principal)
CPT/HCPCS: 99282

== ENCOUNTER 2020-06-09 10:16 | Emergency (ER) | payer SELFPAY ==
--- OUTSIDE RECORDS SUMMARY | 2020-06-09 10:18 | XMS REPORT | Continuity of Care Document ---
:[address] [facility] [place] [place] Address [address] [place] [address] Dr. Benson. [address] [place] [address] Care Team Providers Name Role Phone Sharlene Duong Attending Clinician Problems This patient has no known problems. Allergies, Adverse Reactions, Alerts This patient has no known allergies or adverse reactions. Medications This patient has no known medications. Procedures This patient has no known procedures. Encounters Start End Encounter Admission Attending Care Care Encounter Source Date/Time Date/Time Type Type Clinicians Facility Department ID 2018-10-22 2018-10-22 Office ALESSANDRA Lenz [id number] 13:25:27 13:55:56 Visit Sierra Su SPECIAL DAY CLASS TEACHER [id number] [facility] [id number] MATERNAL [id number] & CHILD [address] [place] [address] Results This patient has no known results.
[2020-06-09] MEDS ORDERED: MORPHINE 4 MG/ML SYR ONE (12:56)
[2020-06-09] MEDS ORDERED: ONDANSETRON 4 MG/2 ML VIAL ONE (12:56)
[2020-06-09] MEDS ORDERED: NA CHLORIDE 0.9% 1,000 ML ONE (12:56)
[2020-06-09 13:01] LABS: Absolute Lymphocytes (CBC) 0.4 K/uL (0.7-4.9); Basophils % 0.2 % (0-1.3); Hematocrit 38.4 % (36.0-45.0); Lymphocytes % 5.5 % (15.3-44.8); MPV 8.9 fL (7.6-11.3); RBC Red Blood Cell Count 5.11 M/uL (3.86-4.86)
[2020-06-09 13:20] LABS: ALT/SGPT 22 U/L (12-78); AST/SGOT 13 U/L (15-37); Albumin 3.8 g/dL (3.4-5.0); Alkaline Phosphatase 109 U/L (45-117); BUN Blood Urea Nitrogen 16 mg/dL (7-18); Bicarbonate 24 mmol/L (21-32); Bilirubin Direct 0.1 mg/dL (0-0.2); Bilirubin Total 0.5 mg/dL (0.2-1.0); Glucose Level 94 mg/dL (74-106); Lipase 53 U/L (73-393); Potassium 3.9 mmol/L (3.5-5.1); Protein, Total 8.2 g/dL (6.4-8.2); Sodium Level 136 mmol/L (136-145)
[2020-06-09 13:48] LABS: White Blood Cell Scan OK (OK)
[2020-06-09 13:49] LABS: Blood Morphology Comment NOT SEEN (NOT SEEN); Platelet Estimate ADEQ
[2020-06-09 14:26] LABS: Urine Blood Negative (Negative); Urine Glucose Negative (Negative); Urine Protein Negative (Negative); Urine Specific Gravity >=1.030 (1.005-1.030); Urine pH 5.5 (5.0-7.0)
--- NOTE | 2020-06-09 14:57 | RAD REPORT ---
EXAM DESCRIPTION: CT - Abdomen Pelvis W Contrast - 06/09/2020 2:30 pm CLINICAL HISTORY: Abdominal pain COMPARISON: none. TECHNIQUE: Computed axial tomography of the abdomen pelvis was obtained. 100 cc Isovue-300 was admin istered intravenously. Oral contrast was not requested which limits evaluation of bowel. All CT scans are performed using dose optimization technique as appropriate and may include automated exposure control or mA/KV adjustment according to patient size. FINDINGS: The liver, spleen, pancreas, adrenal and kidneys appear unremarkable. There is no evidence of diverticulitis. Appendectomy. No adnexal mass. Fluid is present within nondilated small bowel. Small umbilical hernia IMPRESSION: Fluid within nondilated small bowel may indicate an enteritis
--- NOTE | 2020-06-09 15:00 | ER ---
Nurse's Notes [facility] Name: Kamille Schofield Age: 25 yrs Sex: Female : 1995 Arrival Date: 06/09/2020 Time: 10:21 Bed 26 Private MD: Diagnosis: Vomiting;Diarrhea, unspecified Presentation: 06/09 10:30 Chief complaint: Patient states: i started throwing up last night, well 2 in the tw2 morning and i am having diarrhea. i ate something different yesterday but i have ate them before but they were dewberries. Coronavirus screen: nausea, vomiting. Client presents with at least one sign or symptom that may indicate coronavirus-19. Standard/surgical mask placed on the client. Provider contacted for isolation considerations. Ebola Screen: Patient denies travel to an Ebola-affected area in the 21 days before illness onset. 10:30 Method Of Arrival: Ambulatory tw2 10:33 Initial Sepsis Screen: Does the patient meet any 2 criteria? HR > 90 bpm. No. Patient's tw2 initial sepsis screen is negative. Does the patient have a suspected source of infection? No. Patient's initial sepsis screen is negative. Risk Assessment: Do you want to hurt yourself or someone else? Patient reports no desire to harm self or others. Onset of symptoms was June 09, 2020. 10:33 Acuity: SREE 3 tw2 Triage Assessment: 10:33 General: Appears in no apparent distress. uncomfortable, obese, well groomed, Behavior tw2 is calm, cooperative, appropriate for age. Pain: Complains of pain in abdomen. GI: Reports lower abdominal pain, upper abdominal pain, diarrhea, nausea, vomiting. CLINICAL GENETICS LABORATORY CHIEF: 12:13 LMP 06/05/2020 vg1 Historical: - Allergies: 10:32 No Known Allergies; tw2 - Home Meds: 10:32 None [Active]; tw2 - PMHx: 10:32 None; tw2 - PSHx: 10:32 Tubal ligation; Appendectomy; tw2 - Immunization history:: Adult Immunizations. - Social history:: Smoking status: . Screenin:12 Abuse screen: Denies threats or abuse. Nutritional screening: No deficits noted. vg1 Tuberculosis screening: No symptoms or risk factors identified. Fall Risk No fall in past 12 months (0 pts). No secondary diagnosis (0 pts). IV access (20 points). Ambulatory Aid- None/Bed Rest/Nurse Assist (0 pts). Gait- Normal/Bed Rest/Wheelchair (0 pts) Mental Status- Oriented to own ability (0 pts). Total Fang Fall Scale indicates No Risk (0-24 pts). Assessment: 12:04 General: Appears in no apparent distress. comfortable, Behavior is calm, cooperative. vg1 Pain: Denies pain. Also complains of body aches. Neuro: Level of Consciousness is awake, alert, obeys commands, Oriented to person, place, time, situation. Cardiovascular: Patient's skin is warm and dry. Respiratory: Airway is patent Respiratory effort is even, unlabored. GI: Abdomen is round obese, Abdomen is tender to palpation in right lower quadrant and left lower quadrant Reports diarrhea, nausea, vomiting, Pt reports lower ABD tenderness. : No signs and/or symptoms were reported regarding the genitourinary system. EENT: No signs and/or symptoms were reported regarding the EENT system. Derm: Skin is intact, is healthy with good turgor. Musculoskeletal: Circulation, motion, and sensation intact. 14:20 Reassessment: Patient appears in no apparent distress at this time. Patient and/or vg1 family updated on plan of care and expected duration. Pain level reassessed. Patient is alert, oriented x 3, equal unlabored respirations, skin warm/dry/pink. 16:03 Reassessment: Patient appears in no apparent distress at this time. Patient and/or vg1 family updated on plan of care and expected duration. Pain level reassessed. Patient is alert, oriented x 3, equal unlabored respirations, skin warm/dry/pink. Patient states feeling better. Vital Signs: 10:30 BP 130 / 87; Pulse 108; Resp 19; Temp 97.9(TE); Pulse Ox 98% on R/A; Weight 136.98 kg; tw2 Height 5 ft. 7 in. (170.18 cm); Pain 4/10; 12:11 BP 113 / 66; Pulse 103; Resp 16; Pulse Ox 100% on R/A; vg1 14:00 BP 105 / 60; Pulse 92; Resp 16; Pulse Ox 100% on R/A; vg1 15:00 BP 100 / 62; Pulse 85; Resp 16; Pulse Ox 100% on R/A; vg1 10:30 Body Mass Index 47.30 (136.98 kg, 170.18 cm) tw2 ED Course: 10:21 Patient arrived in ED. ds1 10:32 Arm band placed on. tw2 10:34 Triage completed. tw2 12:01 Fercho Stoner PA is PHCP. jm 12:01 Bradley Allison MD is Attending Physician. jmm 12:09 Mayte Owen, RN is Primary Nurse. vg1 12:12 Patient has correct armband on for positive identification. Placed in gown. Call light vg1 in reach. Side rails up X 1. 12:50 Initial lab(s) drawn, by me, sent to lab. Inserted saline lock: 20 gauge in right vg1 antecubital area, using aseptic technique. Blood collected. 14:[address] via wheelchair. vg1 14:30 CT Abd/Pelvis - IV Contrast Only In Process Unspecified. EDMS 16:02 No provider procedures requiring assistance completed. IV discontinued, intact, vg1 bleeding controlled, No redness/swelling at site. Pressure dressing applied. Administered Medications: 12:50 Drug: NS 0.9% 1000 ml Route: IV; Rate: 1 bolus; Site: right antecubital; vg1 14:26 Follow up: IV Status: Completed infusion; IV Intake: 1000ml vg1 12:54 Not Given (Patient Refused): morphine 4 mg IVP once; RASS on ADMIN: Combtv4, Very vg1 Agttd3, Agttd2, Rstlss1, AlertClm0, Drwsy-1, Lt Sdtn-2, Mod Sdtn-3, Dp Sdtn-4, UnArsble-5 12:55 Drug: Zofran (Ondansetron) 4 mg Route: IVP; Site: right antecubital; vg1 14:26 Follow up: Response: No adverse reaction; Nausea is decreased vg1 Intake: 14:26 IV: 1000ml; Total: 1000ml. vg1 Outcome: 15:00 Discharge ordered by . [facility] 16:02 Discharged to home ambulatory. vg1 16:02 Condition: stable 16:02 Discharge instructions given to patient, Instructed on discharge instructions, the need for admit, medication usage, Demonstrated understanding of instructions, follow-up care, medications, Prescriptions given X 2. 16:04 Patient left the ED. vg1 Signatures: Dispatcher [employer] EDMS Fercho Stoner PA PA jmm Sanford, Demi ds1 Aury Wade RN RN tw2 Mayte Owen RN RN vg1
--- NOTE | 2020-06-09 15:01 | EDPHYS ---
Physician Documentation [facility] Name: Kamille Schofield Age: 25 yrs Sex: Female : 1995 Arrival Date: 06/09/2020 Time: 10:21 Bed 26 Private MD: ED Physician Bradley Allison HPI: 06/09 12:33 This 25 yrs old Female presents to ER via Ambulatory with complaints of jmm Diarrhea, Vomiting. 12:33 The patient presents to the emergency department with nausea, vomiting, diarrhea, jmm abdominal pain. Onset: The symptoms/episode began/occurred acutely, this morning. Possible causes: food. The symptoms are aggravated by nothing. The symptoms are alleviated by nothing. Associated signs and symptoms: Pertinent positives: abdominal pain, diarrhea, vomiting. 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 - Social history:: Smoking status: . ROS: 12:33 Constitutional: Negative for fever, chills, and weight loss, Cardiovascular: Negative jmm for chest pain, palpitations, and edema, Respiratory: Negative for shortness of breath, cough, wheezing, and pleuritic chest pain. 12:33 Abdomen/GI: Positive for abdominal pain, vomiting, diarrhea. 12:33 All other systems are negative. Exam: 12:33 Constitutional: This is a well developed, well nourished patient who is awake, alert, jmm and in no acute distress. Head/Face: atraumatic. Eyes: EOMI, no conjunctival erythema appreciated ENT: Moist Mucus Membranes Neck: Trachea midline, Supple Chest/axilla: Normal chest wall appearance and motion. Cardiovascular: Regular rate and rhythm. No edema appreciated Respiratory: Normal respirations, no respiratory distress appreciated 12:33 Back: Normal ROM Skin: General appearance color normal MS/ Extremity: Moves all extremities, no obvious deformities appreciated, no edema noted to the lower extremities Neuro: Awake and alert, normal gait Psych: Behavior is normal, Mood is normal, Patient is cooperative and pleasant 12:33 Abdomen/GI: Inspection: abdomen appears normal, Bowel sounds: normal, Palpation: soft, mild abdominal tenderness, in the suprapubic area, right lower quadrant and left lower quadrant. Vital Signs: 10:30 BP 130 / 87; Pulse 108; Resp 19; Temp 97.9(TE); Pulse Ox 98% on R/A; Weight 136.98 kg; tw2 Height 5 ft. 7 in. (170.18 cm); Pain 4/10; 12:11 BP 113 / 66; Pulse 103; Resp 16; Pulse Ox 100% on R/A; vg1 14:00 BP 105 / 60; Pulse 92; Resp 16; Pulse Ox 100% on R/A; vg1 15:00 BP 100 / 62; Pulse 85; Resp 16; Pulse Ox 100% on R/A; vg1 10:30 Body Mass Index 47.30 (136.98 kg, 170.18 cm) tw2 MDM: 12:11 Patient medically screened. [facility] 14:59 Data reviewed: vital signs, nurses notes. [facility] 14:59 Counseling: I had a detailed discussion with the patient and/or guardian regarding: the [facility] historical points, exam findings, and any diagnostic results supporting the discharge/admit diagnosis, lab results, radiology results, the need for outpatient follow up, to return to the emergency department if symptoms worsen or persist or if there are any questions or concerns that arise at home. ED course: Patient is alert and non toxic in appearance in the ED. CT imaging negative. Patient is advised to follow up with pcp and otherwise given strict return precautions. Patient understood and agrees with the plan of care. . 06/09 12:33 Order name: Basic Metabolic Panel [facility] 06/09 12:33 Order name: CBC with Diff; Complete Time: 13:56 [facility] 06/09 12:33 Order name: Hepatic Function; Complete Time: 13:21 [facility] 06/09 12:33 Order name: Lipase; Complete Time: 13:21 [facility] 06/09 12:34 Order name: Basic Metabolic Panel; Complete Time: 13:21 [facility] 06/09 13:05 Order name: CBC Smear Scan; Complete Time: 13:56 [facility] 06/09 12:33 Order name: IV Saline Lock; Complete Time: 12:54 [facility] 06/09 12:33 Order name: Labs collected and sent; Complete Time: 12:54 [facility] 06/09 14:07 Order name: CT Abd/Pelvis - IV Contrast Only; Complete Time: 14:57 [facility] 06/09 14:26 Order name: Urine Dipstick-Ancillary; Complete Time: 14:30 [facility] 06/09 14:29 Order name: Urine --Ancillary (enter results); Complete Time: 14:59 bd 06/09 12:33 Order name: Urine Dipstick-Ancillary (obtain specimen); Complete Time: 14:25 [facility] 06/09 12:33 Order name: Urine Test (obtain specimen); Complete Time: 14:25 [facility] Administered Medications: 12:50 Drug: NS 0.9% 1000 ml Route: IV; Rate: 1 bolus; Site: right antecubital; vg1 14:26 Follow up: IV Status: Completed infusion; IV Intake: 1000ml vg1 12:54 Not Given (Patient Refused): morphine 4 mg IVP once; RASS on ADMIN: Combtv4, Very vg1 Agttd3, Agttd2, Rstlss1, AlertClm0, Drwsy-1, Lt Sdtn-2, Mod Sdtn-3, Dp Sdtn-4, UnArsble-5 12:55 Drug: Zofran (Ondansetron) 4 mg Route: IVP; Site: right antecubital; vg1 14:26 Follow up: Response: No adverse reaction; Nausea is decreased vg1 Disposition: 06/10 11:21 Co-signature as Attending Physician, Bradley Allison MD I agree with the assessment and leah plan of care. Disposition: 06/09/20 15:00 Discharged to Home. Impression: Vomiting, Diarrhea, unspecified. - Condition is Stable. - Discharge Instructions: Food Choices to Help Relieve Diarrhea, Adult, Nausea and Vomiting, Adult. - Prescriptions for Zofran ODT 4 mg Oral tablet,disintegrating - place 1 tablet by TRANSLINGUAL route every 4-6 hours; 20 tablet. Bentyl 20 mg Oral Tablet - take 2 tablet by ORAL route every 6 hours As needed; 40 tablet. - Medication Reconciliation Form, Thank You Letter, Antibiotic Education, Prescription Opioid Use form. - Follow up: Private Physician; When: 2 - 3 days; Reason: Recheck today's complaints, Continuance of care, Re-evaluation by your physician. Signatures: Dispatcher [employer] Bradley Almonte MD MD cha Mickail, Joel, PA PA jmm Wise, Tara, RN RN tw2 Mayte Owen, RN RN vg1 Corrections: (The following items were deleted from the chart) 06/09 16:04 15:00 06/09/2020 15:00 Discharged to Home. Impression: Vomiting; Diarrhea, unspecified. vg1 Condition is Stable. Forms are Medication Reconciliation Form, Thank You Letter, Antibiotic Education, Prescription Opioid Use. Follow up: Private Physician; When: 2 - 3 days; Reason: Recheck today's complaints, Continuance of care, Re-evaluation by your physician. moises
[2020-06-09 16:11] VITALS: TEMP 97.9
[2020-06-09 16:13] VITALS: O2SAT 100
[2020-06-09 16:15] VITALS: BP 100/62
== END 2020-06-09 16:04 | disposition home or self-care (01) ==
LOC: ER 10:16
DX: R19.7 Diarrhea, unspecified (principal)
CPT/HCPCS: 36415; 74177; 80048; 80076; 81003; 81025; 83690; 85025; 96361; 96374; 99284; J2405; J7030; Q9967